=== PATIENT | female | born 1950 | race Caucasian/White ===

== ENCOUNTER 2025-08-18 02:41 | Observation (INO) | payer MEDICARE, SELFPAY ==
--- OUTSIDE RECORDS SUMMARY | 2025-08-17 13:30 | XMS_ITS | Encounter Summary ---
Author Organization [place] [address] Care Team Providers Care Adult Basic Education Instructor Name Role Phone Yolande Melgar DO Unavailable [phone] Shane Clay MD Unavailable [phone] Mily Saunders DO Primary Care Provider [phone] Reason for Referral * Echo (Routine) - Authorized Specialty Diagnoses / Procedures Referred By Jason magallanes Referred To Contact Radiology Diagnoses History of embolic stroke Mitral valve vegetation Chronic diastolic congestive heart failure (HCC) Procedures EC ECHOCARDIOGRAM COMPLETE W DOPPLER AND COLOR FLOW MAPPING Joanie Maldonado APRN [address] [place] [address] Phone: tel: fax: Referral ID Status Reason Start Date Expiration Date V isits Requested Visits Authorized [id number] Authorized 08/17/2025 08/17/2027 1 1 Reason for Visit * Reason Comments Follow-up 6 monthKnee problems Not the same since she had the stroke in January. 2 days ago left side feels like gas bubble sitting there Encounter Details Date Type Department Care Team (Late Contact Info) Description 08/17/2025 1:30 PM EST Office Visit [facility] [place] [phone] Joanie Maldonado APRN [address] [place] [address] History of embolic stroke (Primary Dx); EDER on CPAP; Mitral valve vegetation; Chronic diastolic congestive heart failure (HCC) Social History Tobacco Use Types Packs/Day Years Used Date Smoking Tobacco: Never Passive Smoke Exposure: Past Smokeless Tobacco: Never Tobacco Cessation:Counseling Given: No Alcohol Use Standard Drinks/Week Comments No 0 (1 standard drink = 0.6 oz pur e alcohol) [facility] Utilities Answer Date Recorded In the past 12 months has e electric, gas, oil, or water company threatened to shut off services in your home? No 02/13/2025 Overall Financial Resource Strain (CARDIA) Answe r Date Recorded How hard is it for you to pa y for the very basics like food, housing, medical care, and heating? Not hard at all 02/26/2025 PHQ-2 Answer Date Recorded PHQ-2 Total Score 0 05/09/2025 [facility] - Occupational Stress Questionnaire Answer Date Recorded Do you feel stress - tense, restless, nervous, or anxious, or unable to sleep at night because your mind is troubled all the time - these days? Not at all 02/26/2025 Exercise Vital Sign Answer Date Recorde d On average, how many days pe r week do you engage in moderate to strenuous exercise (like a brisk walk)? 0 days 02/26/2025 On average, how many minutes do you engage in exercise at this level? 0 min 02/26/2025 Hunger Vital Sign Answer Date Recorded Within the past 12 months, y ou worried that your food would run out before you got the money to buy more. Never true 02/27/20 25 Within the past 12 months, t he food you bought just didn't last and you didn't have money to get more. Never true 02/26/2025 PRAPARE - Transportation Answer Date Re corded In the past 12 months, has l ack of transportation kept you from medical appointments or from getting medications? No 10/2024 In the past 12 months, has l ack of transportation kept you from meetings, work, or from getting things needed for daily living? No 02/26/2025 [facility] IP Transportation Answer D ate Recorded In the past 12 months, has l ack of reliable transportation kept you from medical appointments, meetings, work or from getting things needed for daily living? 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 Answer Date of Assessment Author No 11/19/2021 9:42 AM Coretta Price RMA * Is the person blind or does he/she have serious difficulty seeing even when wearing glasses? Answer Date of Assessment Author No 11/19/2021 9:42 AM Coretta Price RMA * Does this person have serious difficulty walking or climbing stairs? Answer Date of Assessment Author No 11/19/2021 9:42 AM Coretta Price RMA * Does this person have difficulty dressing or bathing? Answer Date of Assessment Author No 11/19/2021 9:42 AM Coretta Price RMA * Because of a physical, mental or emotional condition, does this person have difficulty doing errands alone such as visiting a doctor's office or shopping? Answer Date of Assessment Author No 11/19/2021 9:42 AM Coretta Price RMA documented as of this encounter Mental Status * Because of a physical, mental or emotional condition, does this person have serious difficulty concentrating, remembering or making decisions? Answer Entry Date Author No 11/19/2021 9:42 AM Coretta Price RMA documented in this encounter Progress Notes * Joanie Maldonado, HOUSE MANAGER - 08/17/2025 1:30 PM EST Cardiology Follow Up Visit Name: Belinda Weiss : 1950 Referring Physician Mily Saunders DO Reason for Follow-up Hypertension, ROSE HPI 75 y.o. female is seen for follow up regarding hypertension. She was hospitalized 02/13-02/23 after syncopal episode. She was found to have acute punctate multifocal strokes with concern on Echo for endocarditis. She was evaluated by CTS with infectious workup negative they felt findings more related to calcium that has thrombosed and she was started on AC. Since discharge she has felt more depressed but feels she is improving each day. She was evaluated by sleep medicine and is now wearing cpap.Denies shortness of breath. Admits she is not overly active but no chest pain on exertion to report. Denies orthopnea, edema. Blood pressure is controlled. No bleeding complications. Denies palpitations, racing, near-syncope. ROS Denies: Change in vision, headache, fever, chills, nausea, vomiting, anorexia, diarrhea, change in bowel or bladder habits, weight loss or gain. No palpitations, lightheadedness, dizziness, syncope, or near syncope. No extreme fatigue, daytime solomence or change in energy level. No significant depression or anhedonia. Current Outpatient Medications Medication Sig Dispense Refill amLODIPine (NORVASC) 5 mg Oral Tablet Take 1 Tablet by mouth daily. 90 Tablet 1 apixaban (ELIQUIS) 5 mg Oral Tablet Take 1 Tablet by mouth 2 times daily. 60 Tablet 0 atorvastatin (LIPITOR) 40 mg Oral Tablet Take 1 Tablet by mouth daily for 360 days. 90 Tablet 3 bisoprolol (ZEBETA) 5 mg Oral Tablet Take 0.5 Tablets by mouth daily. 50 Tablet 2 Blood Sugar Diagnostic Misc Strip 1 Strip by Misc.(Non-Drug; Combo Route) route 4 times daily for 90 days. Morning fasting value. Then 1 hour after meals. 360 Strip 0 Blood-Glucose Meter Mis Misc 1 Each by Misc.(Non-Drug; Combo Route) route 4 times daily. Morning fasting value. Then 1 hour after meals. 1 Each 0 ergocalciferol (DRISDOL) 1,250 mcg (50,000 unit) Oral Capsule Take 50,000 Units by mouth daily. fenofibrate (TRICOR) 145 mg Oral Tablet TAKE ONE TABLET BY MOUTH EVERY DAY 90 Tablet 0 glipiZIDE (GLUCOTROL) 10 mg Oral Tablet Take 1 Tablet by mouth 2 times daily. with meals Lancets [facility] Misc 1 Each by Misc.(Non-Drug; Combo Route) route 4 times daily for 90 days. Morning fasting value. Then 1 hour after meals. 360 Each 0 metFORMIN (GLUCOPHAGE) 1,000 mg Oral Tablet Take 1 Tablet by mouth 2 times daily. No current facility-administered medications for this visit. Allergies Allergen Reactions Adrenalone Palpitations Vtzqmir-Zys-Ghf Reductase Inhibitors Myalgia Objective Vitals: 08/17/25 1025 BP: 110/80 Pulse: 70 SpO2: 98% Exam: GENERAL APPEARANCE: In no acute distress. Alert and Oriented x 3 HEENT: Normocephalic, Atraumatic, Sclera anicteric, Pupils equal, round, and reactive. NECK: No JVD, No Bruit. Carotid upstrokes are full. RESPIRATORY: Normal breath sounds bilaterally. No rales or wheezing HEART: Maged. Normal S1, S2- No S3, S4.No Murmur VASCULAR: Normal pulses, equal bilaterally. ABDOMEN: Soft, nontender, no organomegaly, no distension. EXTREMITIES: No edema Good capillary refill. Labs Lab Results Component Value Date CHOLESTEROL 137 02/14/2025 CHOLESTEROL 150 05/31/2024 CHOLESTEROL 186 05/28/2023 HDL 44 02/14/2025 HDL 59 05/31/2024 HDL 65 05/28/2023 LDLCALC 72 02/14/2025 LDLCALC 74 05/31/2024 LDLCALC 101 (H) 05/28/2023 TRIG 119 02/14/2025 TRIG 91 05/31/2024 TRIG 112 05/28/2023 Lab Results Component Value Date INR 0.98 12/25/2022 Lab Results Component Value Date WBC 8.5 02/20/2025 WBC 9.8 02/16/2025 WBC 10.8 (H) 02/15/2025 HGB 11.9 02/20/2025 HGB 12.0 02/16/2025 HGB 12.2 02/15/2025 HCT 36.8 02/20/2025 HCT 37.4 02/16/2025 HCT 38.0 02/15/2025 MCV 88.0 02/20/2025 MCV 87.0 02/16/2025 MCV 88.6 02/15/2025 PLT 247 02/20/2025 PLT 221 02/16/2025 PLT 215 02/15/2025 Lab Results Component Value Date HGBA1C 9.1 (H) 05/24/2025 HGBA1C 8.1 (H) 02/15/2025 HGBA1C 8.0 (H) 05/31/2024 Lab Results Component Value Date NA 141 03/26/2025 NA 136 02/23/2025 NA 137 02/22/2025 K 4.2 03/26/2025 K 3.8 02/23/2025 K 4.1 02/22/2025 BUN 25 (H) 03/26/2025 BUN 14 02/23/2025 BUN 16 02/22/2025 CALCIUM 10.1 03/26/2025 CALCIUM 9.6 02/23/2025 CALCIUM 9.5 02/22/2025 CL 105 03/26/2025 CL 102 02/23/2025 CL 102 02/22/2025 CO2 25 03/26/2025 CO2 25 02/23/2025 CO2 25 02/22/2025 CREATININE 0.75 03/26/2025 CREATININE 0.56 02/23/2025 CREATININE 0.66 02/22/2025 GLU 118 (H) 03/26/2025 GLU 191 (H) 02/23/2025 GLU 188 (H) 02/22/2025 Lab Results Component Value Date ALT 10 05/28/2023 ALT 11 04/29/2022 ALT 8 03/07/2022 AST 13 05/28/2023 AST 12 04/29/2022 AST 12 03/07/2022 ALKPHOS 53 05/28/2023 ALKPHOS 44 04/29/2022 ALKPHOS 44 03/07/2022 Lab Results Component Value Date TSHREFLEX 2.640 05/31/2024 Cardiac Testing: Echo 08/16: EF 70%. Mod MAC. Mild MR. Echo 02/18: EF 55-60%. Mild MR. Mobile echogenicity on ventricular side of the posterior mitral valve leaflet measuring 1.3 cm. CHRISTOFER 02/18: EF 60-65%. A mobile echogenic structure 1.48 cm x 1.4cm attached to the chordae. Mild MR. Assessment: Acute Multifocal Embolic CVA 02/18 Mitral Valve Mass - evaluated by CTS that felt calcium that has thrombosed vs vegetation - infectious w/u negative - now on AC Hypertension - controlled Endometrial Cancer - s/p Total Hysterectomy and bilateral salpingo-oophorectomy 03/18 Type 2 Diabetes - A1c 9.1 Obesity Hyperlipidemia - on fenofibrate, statin H/o Statin Myalgia - tolerating atorvastatin Sleep Apnea - on cpap S/p L CEA 2019 Plan Repeat Echo Encouraged to complete 30-day EM Continue amlodipine, bisoprolol, eliquis Labs reviewed RTC 6 months Joanie Maldonado APRN documented in this encounter Miscellaneous Notes * Patient Instructions - Ganesh Cook MA - 08/17/2025 1:30 PM EST You may receive a survey via phone, mail or e-mail, regarding your visit today. Your feedback is important to us. We ask that you please take a few minutes to fill out the survey. You were assisted by STEPHANI Nair and Kishore Cook Pinky Thank You for choosing [facility]. We sincerely thank you for the opportunity to be a part of your care. documented in this encounter Plan of Treatment Upcoming Encounters Date Type Department Care Team (Late st Contact Info) Description 02/06/2026 11:30 AM EDT Office Visit [facility] [address] [phone] Lelo Diaz APRN [address] [address] 02/14/2026 12:15 PM EDT Appointment [facility] [address] [place] [address] Joanie Maldonado APRN [address] [place] [address] 03/25/2026 11:00 AM EDT Office Visit [facility] [place] [address] [place] [address] Derik Aragon MD [address] [place] [address] Scheduled Orders Name Type Priority Associated Diagnoses Order Schedule EC ECHOCARDIOGRAM COMPLETE W DOPPLER AND COLOR FLOW MAPPING Imaging Cardiology Routine History of embolic stroke Mitral valve vegetation Chronic diastolic congestive heart failure (HCC) 1 Occurrences starting 08/17/2025 until 08/17/2027 documented as of this encounter Goals Goal Patient Goal Type Associated Problems Recent Progress Patient-Stated? 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 ergocalciferol (DRISDOL) 1,250 mcg (50,000 unit) Oral Capsule Take 50,000 Units by mouth daily. added in this encounter Additional Health Concerns Assessment Noted Time A fall risk assessment has been complete d for the patient 05/31/2024 8:53 AM EDT documented as of this encounter Care Teams Adult Basic Education Instructor Relationship Specialty Start Date End Date Mily Saunders DO [address] [place] [address] PCP - General Family Medicine 12/16/23 Yolande Melgar DO Referring Physician Obstetrics & Gynecology 01/20/22 Shane Clay MD [address] [place] [address] [place] [address] Consulting Physician Obstetrics & Gynecology-Gynecologic Oncology 01/20/22 documented as of this encounter
[2025-08-18] VITALS (19 sets, daily range): BP systolic 121–165; BP diastolic 66–97; PULSE 60–98; RESP 10–25; TEMP 36.4–37.2; O2SAT 94–98; BMI 43.4
--- NOTE | 2025-08-18 02:49 | CT_ITS ---
PROCEDURE INFORMATION: Exam: CT Abdomen And Pelvis With Contrast Exam date and time: 08/18/2025 3:47 AM Age: 75 years old Clinical indication: Other: Epigastric burning/pain TECHNIQUE: Imaging protocol: Computed tomography of the abdomen and pelvis with contrast. Radiation optimization: All CT scans at this facility use at least one of these dose optimization techniques: automated exposure control; mA and/or kV adjustment per patient size (includes targeted exams where dose is matched to clinical indication); or iterative reconstruction. Contrast material: ISOVUE; Contrast volume: 75 ml; Contrast route: IV; COMPARISON: No relevant prior studies available. FINDINGS: Heart: Extensive mitral annular calcifications. Coronary arteries: Moderate coronary calcium. Liver: The liver is low in density. Gallbladder and biliary ducts: Cholecystectomy. Pancreas: Normal. No ductal dilation. Spleen: Normal. No splenomegaly. Adrenal glands: Normal. No mass. Kidneys and ureters: Normal. No hydronephrosis. Stomach and bowel: Unremarkable. No obstruction. No mucosal thickening. Appendix: No evidence of appendicitis. Intraperitoneal space: Unremarkable. No free air. No significant fluid collection. Vasculature: Unremarkable. No abdominal aortic aneurysm. Lymph nodes: A single 12 mm short axis left retroperitoneal lymph node is noted.. No enlarged lymph nodes. Urinary bladder: Unremarkable as visualized. Reproductive: Hysterectomy. Bones/joints: Unremarkable. No acute fracture. Soft tissues: Unremarkable. IMPRESSION: No acute process to explain the patient's symptoms.
--- NOTE | 2025-08-18 03:09 | ECG_ITS ---
APPROVED REPORT Exam: Resting ECG HR:63 bpm ECG Measurements Heart Rate [address] 211 P 55 QRSd 89 QRS 30 QT 431 T -6 QTc 437 Conclusion SINUS RHYTHM WITH FIRST DEGREE AV BLOCK ABNORMAL ECG Inverted T waves in lead III and aVF but no reciprocal changes, no STEMI Electronically signed by : SAMINA PALMER, 08/18/2025 07:23:48
--- NOTE | 2025-08-18 03:12 | ED_ITS ---
Discharge Plan Disposition Patient Disposition: Admitted Condition: Fair Clinical Impressions Clinical Impression: Non-ST elevation LA (NSTEMI), Enlarged lymph node Discharge ED Provider: Marciano Garcia Adult HPI General Chief complaint: Abdominal Pain Stated complaint: altered Time Seen by Provider: 08/18/25 02:49 Mode of Arrival: EMS Source of Information: Patient and EMS Description of Symptoms (Recalled from ER Triage Doc. by RN): PT brought to the ED for evaluation of burning in her chest- substernal. Denies being nauseous. PT stated she did not eat supper last night but did drink carbonated drinks last night. PT is A&Ox4 and answered all questions appropriately. PT is upset that her family called EMS for transfer. PT takes Eliquis History of Present Illness HPI narrative: 75-year-old female presents to the ER via EMS for substernal burning and sharp pain in the chest. She reports it has been going on for the last 5 hours. She denies being nauseous. She denies any chest pressure or difficulty breathing. She reports she did not eat supper last night but did drink carbonated beverages which is not normal for her. She is fully alert and oriented. Patient reports she has had episodes like this in the past but they usually only last an hour. Patient has a history of strokes and takes Eliquis. Patient reports she does see cardiology and has an echo scheduled again in 6 months. She states her appointment with cardiology yesterday showed everything was stable. She denies any diarrhea or constipation, denies dysuria or hematuria. No fevers or chills, no headache or dizziness, no numbness, tingling, or weakness. No cough or congestion. No other complaints or concerns. Related Data Allergies Allergy/AdvReac Type Severity Reaction Status Date / Time No Known Allergies Allergy Verified 08/18/25 02:54 [facility] Disclaimer: The information contained in this section may have been updated after the patient was seen, as this information can be updated by other users. Social History Smoking Status: Never smoker alcohol intake: never current occupational status: other Travel in the last 8 weeks?: None ROS Obtained: Yes Systems reviewed as appropriate & no additional complaints except as documented Per HPI Physical Exam General General appearance: alert, in no apparent distress and obese Head Head exam: atraumatic and normocephalic Eye Eye exam: Present PERRL and EOMI ENT ENT exam: Present mucous membranes moist Neck Neck exam: Present normal inspection and full ROM Chest Chest inspection: Present symmetric chest wall rise Respiratory Respiratory exam: Present normal lung sounds bilaterally; Absent respiratory distress, wheezes or stridor Cardiovascular Cardiovascular exam: Present regular rate and normal rhythm Abdominal Exam Abdominal exam: Present soft and tenderness (Mild epigastric tenderness); Absent distention, guarding or rebound Extremities Exam Extremities exam: Present full ROM Neurological Exam Neurological exam: Present alert and oriented X3; Absent motor sensory deficit Psychiatric Psychiatric exam: Present normal affect and normal mood Skin Skin exam: Present warm and dry Medical Decision Making Medical Records Screening: Per USPSTF and CDC recommendations, given the prevalence of disease in our region, it is our hospital?s policy to screen for HIV and viral Hepatitis for all patients aged 18 and over and those with ongoing risk factors. Angelito Inquiry Pt receiving controlled substance: No Vital Signs: 08/18/25 02:45 08/18/25 02:56 08/18/25 04:40 Temperature 98.9 F 98.6 F Temperature Source Oral Pulse Rate 64 98 H Pulse Rate [Right] 64 Respiratory Rate 13 13 23 Blood Pressure 141/85 H 160/88 H Blood Pressure [Right Arm] 141/85 H Blood Pressure Mean [Right Arm] 103 02 Sat by Pulse Oximetry 97 97 94 L Oxygen Delivery Method Room Air Room Air Room Air 08/18/25 06:15 08/18/25 06:47 Temperature 98.4 F Temperature Source Pulse Rate 73 77 Pulse Rate [Right] Respiratory Rate 14 16 Blood Pressure 121/66 130/76 Blood Pressure [Right Arm] Blood Pressure Mean [Right Arm] 02 Sat by Pulse Oximetry 96 Oxygen Delivery Method Room Air Room Air Lab Data Lab Results 08/18/25 03:05: WBC 11.5 H, RBC 4.41, Hgb 12.2, Hct 38.8, MCV 88.0, MCH 27.7, M CHC 31.4 L, RDW 13.0, Plt Count 285, MPV 11.4 H, Neut % (Auto) 75.5, Lymph % (Auto) 15.6, [place] % (Auto) 6.2, Eos % (Auto) 1.7, Baso % (Auto) 0.4, Neut # (Auto) 8.6 H, Lymph # (Auto) 1.8, [place] # (Auto) 0.7, Eos # (Auto) 0.2, Baso # (Auto) 0.1, PT 11.6, INR 1.05, Sodium 136, Potassium 4.1, Chloride 103, Carbon Dioxide 26, Anion Gap 11.1, BUN 20 H, Creatinine 0.80, Estimated Creat Clear 44, Estimated GFR 70, Est GFR ( Amer) 84, Glucose 156 H, Lactate 1.5, Calcium 9.7, Total Bilirubin 0.4, AST 17, ALT 15, Alkaline Phosphatase 63, Troponin I < 0.01, Total Protein 7.2, Albumin 4.2, Globulin 3.0, Albumin/Globulin Ratio 1.4, Lipase 113 08/18/25 04:45: Urine Color Yellow, Urine Appearance Clear, Urine pH 6.5, Ur Specific [place] <= 1.005, Urine Protein Negative, Urine Glucose (UA) Negative, Urine Ketones Negative, Urine Blood Negative, Urine Nitrate Negative, Urine Bilirubin Negative, Urine Urobilinogen 0.2, Ur Leukocyte Esterase Negative, Urine RBC None, Urine WBC None, Ur Squamous Epith Cells 3-5, Urine Bacteria Trace 08/18/25 05:04: Troponin I 0.05 H 08/18/25 03:05 08/18/25 03:05 Orders (Tests/Meds): ED MEDICATIONS Generic Name Dose Route Start Last Admin Trade Name Freq PRN Reason Stop Dose Admin Acetaminophen 650 mg 08/18/25 06:37 Acetaminophen 325mg Tab PO 09/17/25 06:36 Q4HP PRN Fever or Mild Pain (1-3) Hydrocodone Bitart/Acetaminophen 1 tab 08/18/25 06:37 Hydrocodone/Apap 5/325 Mg Tablet PO 09/17/25 06:36 Q4HP PRN Mild to Moderate Pain (1-6) Enoxaparin Sodium 120 mg 08/18/25 06:30 08/18/25 06:38 Enoxaparin 120mg/0.8ml Syringe SUBCUT 09/17/25 06:29 120 mg Q12H BAKARI Administration Insulin Human Lispro 0 unit 08/18/25 11:00 Humalog 100 Units/Ml 10ml Vial (Ssi) SUBCUT 09/17/25 10:59 ACHS BAKARI Protocol Morphine Sulfate 2 mg 08/18/25 06:37 Morphine 2mg/Ml Syringe IV 09/17/25 06:36 Q2HP PRN Severe Pain (7-10) Nitroglycerin 0.4 mg 08/18/25 06:04 08/18/25 06:14 Nitroglycerin 0.4mg Sl Tablet SL 09/17/25 06:03 0.4 mg Q5MINP PRN Administration Chest Pain Ondansetron HCl 4 mg 08/18/25 06:37 Ondansetron 4mg/2ml Vial IV 09/17/25 06:36 Q8HP PRN Nausea Sodium Chloride 10 ml 08/18/25 03:49 08/18/25 03:50 Sodium Chloride 0.9% 10ml Syr (Rad Only) IV 09/17/25 03:48 10 ml NEEDED PRN Administration Maintain IV Site Discontinued Medications Generic Name Dose Route Start Last Admin Trade Name Freq PRN Reason Stop Dose Admin Aspirin 324 mg 08/18/25 02:59 08/18/25 03:27 Aspirin 81mg Chewable Tablet PO 08/18/25 03:00 324 mg ONCE ONE Administration Belladonna Alkaloids 60 ml 08/18/25 04:41 08/18/25 04:44 Belladonna Alkaloids 60 Ml Ml PO 08/18/25 04:42 60 ml ONCE ONE Administration Lactated Ringer's 1,000 mls @ 999 mls/hr 08/18/25 02:49 08/18/25 04:58 Lactated Ringer's 1000 Ml Bag IV 08/18/25 03:49 Infused .Q1H1M ONE Infusion Lactated Ringer's 500 mls @ 999 mls/hr 08/18/25 04:58 08/18/25 05:43 Lactated Ringer's 500ml IV 08/18/25 05:28 Infused .Q31M ONE Infusion Iopamidol 75 ml 08/18/25 03:49 08/18/25 03:50 Iopamidol-370 (76%);100ml Bottle IV 08/18/25 03:50 75 ml ONCE ONE Administration Sucralfate 1 gm 08/18/25 02:50 08/18/25 03:30 Sucralfate 1gm/10ml Susp Udc PO 08/18/25 02:51 1 gm ONCE ONE Administration ORDERS Category Date Time Status CT abdomen pelvis w con Stat Cat Scan 08/18/25 02:49 Completed Complete Blood Count Auto Diff Stat Lab 08/18/25 03:05 Completed Comprehensive Metabolic Panel Stat Lab 08/18/25 03:05 Completed Lactic Acid Stat Lab 08/18/25 03:05 Completed Lipase Stat Lab 08/18/25 03:05 Completed Prothrombin Time INR Stat Lab 08/18/25 03:05 Completed Troponin I Q3H Lab 08/18/25 05:04 Completed Troponin I Q3H Lab 08/18/25 09:00 Ordered Troponin I Stat Lab 08/18/25 03:05 Completed Urinalysis and Microscopic Stat Lab 08/18/25 04:45 Completed Medical Decision Narrative: In summary, this 75-year-old female with comorbidities described in the HPI including stroke on Eliquis presents to the emergency department today with burning epigastric discomfort. On initial evaluation patient is hemodynamically stable though hypertensive, GCS 15, mild tenderness to palpation in the epigastric region with no rebound or guarding, no peritonitic findings, no peripheral edema, pulmonary exam benign. Differential diagnosis includes but is not limited to ACS, esophageal spasm, patient reports a history of heartburn so I did consider this/reflux as well as pneumothorax, pancreatitis, viral syndrome, gastritis or esophagitis, among others. Based on these concerns, I ordered hematologic and serum labs, cardiac workup including ECG, chest x-ray, cardiac enzymes. ECG personally interpreted demonstrates sinus rhythm, first degree A-V block, rate 63, normal axis, normal QTc, no STEMI though there are T wave inversions in lead III and aVF without reciprocal or contiguous changes Patient received sucralfate and aspirin initially for treatment. She is also receiving IV fluids Labs personally reviewed demonstrate leukocytosis is mild at 11.5, nonactionable, no anemia, normal platelets, PT/INR normal, CMP with mild prerenal azotemia, patient is receiving IV fluids. Initial troponin undetectably low less than 0.01, UA negative for findings of infection. XR personally interpreted demonstrates no acute intrathoracic abnormality, see radiology read for final interpretation. CT imaging personally interpreted demonstrate no stranding along the pancreas, no acute surgical pathology, see radiology read for final interpretation. Radiology read comments on a single slightly enlarged lymph node for which patient was informed for outpatient follow-up. Patient was placed into ED observation at 0400 for serial troponins to rule out evolving LA and preclude unnecessary admission. She remained on the rn cardiac cath and was frequently reassessed. She continued having some burning so GI cocktail was provided. She reports this significantly improved her pain but it is not yet absent. Repeat troponin resulted at 0.05, this is an acute change. Repeat ECG was obtained, personally performed and interpreted demonstrating sinus rhythm, rate 73, normal axis, normal OH and QTc, no STEMI. Patient does have T wave inversions in lead III and aVF which are persistent from prior but unchanged. No dynamic changes. I had interactive discussion with Dr. Vincent regarding this patient's elevation in troponin and persistent symptoms with her ECG. We reviewed the ECG. He recommended nitro administration and if this did not resolve her symptoms to start her on Lovenox. He recommends admission regardless for continued cardiac workup. I recommended this to the patient and she is agreeable. She did not have resolution of symptoms after nitro so Lovenox is being administered. I discussed this case with the hospitalist who graciously except the patient for admission. She was admitted in stable condition. Critical Care Critical Care Time Critical Care Time: No
[2025-08-18 03:13] LABS: Hematocrit 38.8 % (37.0-47.0); Hemoglobin 12.2 g/dL (12.2-16.2); Immature Granulocytes % 0.6 %; Mean Corpuscular HGB Conc 31.4 g/dL (31.8-35.4); Mean Corpuscular Hemoglobin 27.7 pg (27.0-31.2); Mean Corpuscular Volume 88.0 fl (81-99); Nucleated Red Blood Cells % 0 %; Platelet Count 285 K/mm3 (142-424); Red Blood Count 4.41 M/mm3 (4.20-5.40); Red Cell Distribution Width-SD 41.7 fL; White Blood Count 11.5 K/mm3 (4.8-10.8)
--- OUTSIDE RECORDS SUMMARY | 2025-08-18 03:22 | XMS_ITS | Encounter Summary ---
Author Organization [place] [address] Care Team Providers Care Demo Specialist Name Role Phone Jennifer Delgadillo MD Primary Care Provi elroy Unavailable Yolande Melgar DO Unavailable [phone] Shane Clay MD Unavailable [phone] Mily Saunders DO Primary Care Provider [phone],LD Unavailable Unavailab le Encounter Details Date Type Department Care Team (Latest Contact Info) Description 03/11/2022 External Contact [facility] Pulmonology [facility] [address] [phone] Artur West MD [address] [phone] ROSE (dyspnea on exertion) (Primary Dx); EDER on CPAP; Morbid obesity (HCC); 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 Not hard at all 03/03/2022 PHQ-2 Answer Date Recorded PHQ-2 Total Score 0 11/19/2021 Hunger Vital Sign Answer Date Recorded Within the past 12 months, y ou worried that your food would run out before you got the money to buy more. Never true 03/03/20 22 Within the past 12 months, t he food you bought just didn't last and you didn't have money to get more. Never true 03/03/2022 PRAPARE - Transportation Answer Date Re corded In the past 12 months, has l ack of transportation kept you from medical appointments or from getting medications? No 03/2022 In the past 12 months, has l ack of transportation kept you from meetings, work, or from getting things needed for daily living? 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 No / Unsure 03/10/2022 1:03 PM EDT documented as of this encounter Functional Status * Is the [...] Coretta Price RMA documented in this encounter Plan of Treatment Upcoming Encounters Date Type Department Care Team (Late st Contact Info) Description 02/06/2026 11:30 AM EDT Office Visit SEP Sleep Medicine [facility] [address] [phone] Lelo Diaz, SOLUTION SALES SENIOR EXECUTIVE [address] [address] 02/14/2026 12:15 PM EDT Appointment [facility] [address] [place] [address] Joanie Maldonado, SOLUTION SALES SENIOR EXECUTIVE [address] [place] [address] 03/25/2026 11:00 AM EDT Office Visit [facility] H[facility]V [address] [address] Derik Aragon MD [address] [place] [address] documented as of this encounter Goals Goal Patient Goal Type Associated Problems Recent Progress Patient-Stated? Author Blood Pressure < 140/90 Blood Pressure 110/80(2024 10:25 AM EST) Coretta Voss RMA BMI (Calculated) < 30 General 43.5(08/17/20 10:25 AM EST) No Coretta Rodarte RMA Maintain a healthy diet, exercise regularly and maintain an ideal body weight General No Coretta Rodarte RMA HEMOGLOBIN A1C < 7.0 Result Component 9.1( 12:06 PM EDT) No Coretta Rodarte ROSEMARY Casarez documented as of this encounter Visit Diagnoses Diagnosis ROSE (dyspnea on exertion)- Primary Other dyspnea and respiratory abnormality EDER on CPAP Obstructive sleep apnea (adult) (pediatric) Morbid obesity (HCC) Morbid obesity 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 documented in this encounter Additional Health Concerns Infection Onset Date Last Indicated Resolved Time R/O COVID-19 10/08/2023 10/08/2023 10/08/2023 12:3 2 PM EST Assessment Noted Time A fall risk assessment has been complete d for the patient 11/12/2021 3:03 PM EST documented as of this encounter Care Teams Demo Specialist Relationship Specialty Start Date End Date Jennifer Delgadillo MD PCP - General Family Medicine 07/01/18 12/15/23 Mily Saunders DO [address] [place] [address] PCP - General Family Medicine 12/16/23 Yolande Melgar DO Referring Physician Obstetrics & Gynecology 01/20/22 Shane Clay MD [address] [place] [address] [place] [address] Consulting Physician Obstetrics & Gynecology-Gynecologic Oncology 01/20/[address],LD Dietitian 03/02/25 03/07/25 documented as of this encounter
--- OUTSIDE RECORDS SUMMARY | 2025-08-18 03:24 | XMS_ITS | Encounter Summary ---
Author Organization [facility] [place] [address] Care Team Providers Care Door Puller Name Role Phone Yolande Melgar DO Unavailable [phone] Shane Clay MD Unavailable [phone] Mily Saunders DO Primary Care Provider [phone] Reason for Visit * Reason Onset Date Comments Refill 07/19/2025 Med refill Encounter Details Date Type Department Care Team (Late st Contact Info) Description 07/19/2025 Telephone [facility] [address] [place] [phone] Mily Saunders DO [address] [facility] [place] [id number] Refill (Med refill ) Social History Tobacco Use Types Packs/Day Years Used Date Smoking Tobacco: Never Passive Smoke Exposure: Past Smokeless Tobacco: Never Alcohol Use Standard Drinks/Week Comments No 0 (1 standard drink = 0.6 oz pur e alcohol) [facility] Utilities Answer Date Recorded In the past 12 months has e electric, gas, oil, or water company threatened to shut off services in your home? No 02/13/2025 Overall Financial Resource Strain (CARDIA) Dulce r Date Recorded How hard is it for you to pa y for the very basics like food, housing, medical care, and heating? Not hard at all 02/26/2025 PHQ-2 Answer Date Recorded PHQ-2 Total Score 0 05/09/2025 [facility] [place] [facility] Occup[facility] ional [facility] - Occupational Stress [...] things needed for daily living? No 02/26/2025 [facility] IP Transportation Answer D ate Recorded [...] on file documented as of this encounter Functional Status * Is the person deaf or does he/she have serious difficulty hearing? Answer Date of Assessment Author No 11/19/2021 9:42 AM Coretta Price RMA * Is the person blind or does he/she have serious difficulty seeing even when wearing glasses? Answer Date of Assessment Author No 11/19/2021 9:42 AM [facility] Cherisedonemir linares Corettaadis Casarez, CARIDADA * Does this person have serious difficulty walking or climbing stairs? Answer Date of Assessment Author No 11/19/2021 9:42 AM [facility] Hicks vijay Corettaadis Casarez, CARIDADA * Does this person have difficulty dressing or bathing? Answer Date of Assessment Author No 11/19/2021 9:42 AM [facility] Benavidezemir linares Corettaadis Casarez, CARIDADA * Because of a physical, mental or emotional condition, does this person have difficulty doing errands alone such as visiting a doctor's office or shopping? Answer Date of Assessment Author No 11/19/2021 9:42 AM [facility] linares Coretta Leida CARIDADA documented as of this encounter Mental Status * Because of a physical, mental or emotional condition, does this person have serious difficulty concentrating, remembering or making decisions? Answer Entry Date Author No 11/19/2021 9:42 AM [facility] Cherisedonemir linares Corettaadis Casarez ROSEMARY documented in this encounter Ordered Prescriptions Prescription Sig Dispense Quantity Refills Last Filled Start Date End Date apixaban (ELIQUIS) 5 mg Oral TabletIndications:C arotid artery disease without cerebral infarction Take 1 Tablet by mouth 2 times daily. 60 Tablet 07/19/2025 documented in this encounter Miscellaneous Notes * Telephone Encounter - Anibal Fish MA - 07/19/2025 12:49 PM EDT Meds sent lmtcb * Telephone Encounter - Kalpana Foreman - 07/19/2025 12:33 PM EDT Select the most appropriate reason for this telephone message: Medication Refill Who is requesting the refill: Patient Return Method of Communication: Phone Call Medication(s)Name/Dosage/Frequency: ELIQUIS 5 mg Oral Tablet 60 Tablet 0 06/19/2025 -- Sig - Route: TAKE 1 TABLET BY MOUTH TWICE A DAY - Oral Prescribing provider: Dr. Saunders Did patient contact the pharmacy first: No pt wasn't sure if she should call us or the pharmacy (For any future refill, we recommend you contact your pharmacy first How many days left on hand: pt thinks she has about 10 days of this left Future appt date w/ prescribing provider: n/a Pharmacy & Location: [facility]/pharmacy #[id number] [place] [address] [address] [place] [address] Informed patient refill requests can take up to 72 business hours for response Yes Additional Information: med pended - please call pt to advise when this is taken care of documented in this encounter Plan of Treatment Upcoming Encounters Date Type Department Care Team (Late st Contact Info) Description 02/06/2026 11:30 AM EDT Office Visit [facility] Sleep Medicine [facility] [address] [phone] Lelo Diaz, NIGHT PATROL INSPECTOR [address] [address] 02/14/2026 12:15 PM EDT Appointment [facility] [address] [facility] [address] Joanie Maldonado, NIGHT PATROL INSPECTOR [address] [place] [address] 03/25/2026 11:00 AM EDT Office Visit [facility] H[facility] [address] [place] [address] Derik Aragon MD [address] [place] [address] documented as of this encounter Goals Goal Patient Goal Type Associated Problems Recent Progress Patient-Stated? Author Blood Pressure < 140/90 Blood Pressure 110/80(2024 10:25 AM EST) No Coretta Rodarte RMA BMI (Calculated) < 30 General 43.5(08/17/20 10:25 AM EST) No Coretta Rodarte RMA Maintain a healthy diet, exercise regularly and maintain an ideal body weight General No Coretta Rodarte RMA HEMOGLOBIN A1C < 7.0 Result Component 9.1( 12:06 PM EDT) No Coretta Rodarte RMA documented as of this encounter Visit Diagnoses Diagnosis Carotid artery disease without cerebral infarction Other specified transient cerebral ischemias documented in this encounter Discontinued Medications Medication Sig Discontinue Reason Start Date End Da te ELIQUIS 5 mg Oral TabletIndications:Caroti d artery disease without cerebral infarction TAKE 1 TABLET BY MOUTH TWICE A DAY Reorder 06/19/2025 07/19/2025 documented as of this encounter Additional Health Concerns Assessment Noted Time A fall risk assessment has been complete d for the patient 05/31/2024 8:53 AM EDT documented as of this encounter Care Teams Door Puller Relationship Specialty Start Date End Date Mily Saunders [place] [address] PCP - General Family Medicine 12/16/23 Yolande Melgar DO Referring Physician Obstetrics & Gynecology 01/20/22 Shane Clay MD [address] [place] [address] [place] [phone] Consulting Physician Obstetrics & Gynecology-Gynecologic Oncology 01/20/22 documented as of this encounter
--- OUTSIDE RECORDS SUMMARY | 2025-08-18 03:25 | XMS_ITS | Encounter Summary ---
Author Organization [place] [address] Care Team Providers Care Lead Ios Developer Name Role Phone Yolande Melgar DO Unavailable [phone] Shane Clay MD Unavailable [phone] Mily Saunders DO Primary Care Provider + [phone] Reason for Visit * Reason Onset Date Comments Medication Management 05/22/2025 ELIQUIS 5 mg Oral Tablet Encounter Details Date Type Department Care Team (Late st Contact Info) Description 05/22/2025 Telephone SEP Claudia [address] [place] [address] Mily Saunders DO [address] [facility] [place] [phone] Medication Management (ELIQUIS 5 mg Oral Tablet /) Social History Tobacco Use Types Packs/Day Years Used Date Smoking Tobacco: Never Passive Smoke Exposure: Past Smokeless Tobacco: Never Alcohol Use Standard Drinks/Week Comments No 0 (1 standard drink = 0.6 oz pur e alcohol) [facility] Utilities Answer Date Recorded In [...] Date Recorded PHQ-2 Total Score 0 05/09/2025 [facility] - Occupational [...] things needed for daily living? No 02/26/2025 [facility] IP Transportation Answer D ate [...] Assessment Author No 11/19/2021 9:42 AM Coretta Price, RMA * Does this person have serious difficulty walking or climbing stairs? Answer Date of Assessment Author No 11/19/2021 9:42 AM Coretta Price, RMA * Does this person have difficulty dressing or bathing? Answer Date of Assessment Author No 11/19/2021 9:42 AM Coretta Price, RMA * Because of a physical, mental or emotional condition, does this person have difficulty doing errands alone such as visiting a doctor's office or shopping? Answer Date of Assessment Author No 11/19/2021 9:42 AM Coretta Price, RMA documented as of this encounter Mental Status * Because of a physical, mental or emotional condition, does this person have serious difficulty concentrating, remembering or making decisions? Answer Entry Date Author No 11/19/2021 9:42 AM Coretta Price Leida, RMA documented in this encounter Miscellaneous Notes * Telephone Encounter - Barbara Alas RMA - 05/22/2025 1:44 PM EDT Do you know if we have samples? * Telephone Encounter - Remy Romo CCMA - 05/22/2025 1:23 PM EDT Select the most appropriate reason for this telephone message: Other Who is calling (name & relationship to patient if not the patient): Patient What is needed OR why are they calling: She is calling back about the same thing When is this needed by: today Where does this information need to go: Dr. Saunders Return Method of Communication: Phone Call Additional information:N/A * Telephone Encounter - Nancy Kingston MA - 05/22/2025 10:18 AM EDT Select the most appropriate reason for this telephone message: Medication Management/Problem Who is calling? Patient What medication(s) do you have concerns about: Disp Refills Start End ELIQUIS 5 mg Oral Tablet 60 Tablet 0 05/22/2025 -- Sig - Route: TAKE 1 TABLET BY MOUTH TWICE A DAY - Oral Sent to pharmacy as: Eliquis 5 mg tablet (apixaban) Cosign for Ordering: Required by Mily Saunders, DO E-Prescribing Status: Receipt confirmed by pharmacy (05/22/2025 8:30 AM EDT) Prescribing provider: Mily Saunders, DO What are your concerns/request: Pt is [facility] [place] [facility] and was advisedit could take 2 weeks for shipping. Pt states she only has 3 days of the following medication left,and is asking if she is able to get samples. Desired outcome: Other Samples Last appointment date: 05/09/25 Pharmacy: [id number] [place] [address] [address] [facility] [phone] [[id number]] Return Method of Communication: Phone Call Additional Information: Please advise if samples are available that pt can scrap picker as pt reports she was advised by [facility] it could take 2 weeks to receive meds, and she only has 3 days left of the following med. Pt states if no samples are available can she please have a 2 week supply sent to local pharmacy at [facility] in [place]. Please advise pt if samples are available as she is concerned about cost. Pt states she's having trouble with her phone ringing so if she does not answer please reach out to her son Saji (on [facility]) @ [phone]. Pt is very concerned about being out of the followingmedication, thank you. FOLLOW UP NEEDED:Thank you. documented in this encounter Plan of Treatment Upcoming Encounters Date Type Department Care Team (Late st Contact Info) Description 02/06/2026 11:30 AM EDT Office Visit SEP Sleep Medicine [facility] 6[address] [facility] Building [address] [place] [phone] Lelo Diaz, SHREDDER PICKER 651 [facility] Building [address] [place] [address] 02/14/2026 12:15 PM EDT Appointment [facility] [address] [place] [address] Joanie Maldonado, SHREDDER PICKER [address] [place] [address] 03/25/2026 11:00 AM EDT Office Visit SEP [facility] [address] [place] [address] Derik Aragon MD [address] [place] [address] documented as of this encounter Goals Goal Patient Goal Type Associated Problems Recent Progress Patient-Stated? Author Blood Pressure < 140/90 Blood Pressure 110/80(2024 10:25 AM EST) No Coretta Rodarte RMA BMI (Calculated) < 30 General 43.5(08/17/20 10:25 AM EST) No Coretta Rodatre RMA Maintain a healthy diet, exercise regularly and maintain an ideal body weight General No Coretta Rodarte RMA HEMOGLOBIN A1C < 7.0 Result Component 9.1( 12:06 PM EDT) No Coretta Rodarte RMA documented as of this encounter Visit Diagnoses Not on filedocumented in this encounter Additional Health Concerns Assessment Noted Time A fall risk assessment has been complete d for the patient 05/31/2024 8:53 AM EDT documented as of this encounter Care Teams Lead Ios Developer Relationship Specialty Start Date End Date Mily Saunders DO [address] [place] [phone] PCP - General Family Medicine 12/16/23 Yolande Melgar DO Referring Physician Obstetrics & Gynecology 01/20/22 Shane Clay MD 1 [place] [address] Consulting Physician Obstetrics & Gynecology-Gynecologic Oncology 01/20/22 documented as of this encounter
--- OUTSIDE RECORDS SUMMARY | 2025-08-18 03:25 | XMS_ITS | Encounter Summary ---
Author Organization [place] Address [address] [place] [address] Care Team Providers Care Domestic Technician Name Role Phone Yolande Melgar DO Unavailable [phone] Shane Clay MD Unavailable [phone] Mily Saunders DO Primary Care Provider [phone] Reason for Referral * DEXA (Routine) - Pending Review Specialty Diagnoses / Procedures Referred By Jason magallanes Referred To Contact Radiology Diagnoses Post-menopausal At risk for loss of bone density Procedures DX BONE DENSITY AXIAL SKELETON Mily Saunders DO [address] [place] [address] Phone: tel: fax: Referral ID Status Reason Start Date Expiration Date V isits Requested Visits Authorized [id number] Pending Review 06/20/2025 06/20/2026 1 1 Encounter Details Date Type Department Care Team (Late st Contact Info) Description 06/20/2025 Orders Only SEP [facility] [address] [place] [address] Mily Saunders DO [address] [place], [place] [phone] Post-menopausal; At risk for loss of bone density Social History Tobacco Use Types Packs/Day Years Used Date Smoking Tobacco: Never Passive Smoke Exposure: Past Smokeless Tobacco: Never Alcohol Use Standard Drinks/Week Comments No 0 (1 standard drink = 0.6 oz pur e alcohol) [facility] Utilities Answer Date Recorded In the past 12 months has th e electric, gas, oil, or water company threatened to shut off services in your home? No 02/13/2025 Overall Financial Resource Strain (CARDIA) Answe r Date Recorded How hard is it for you to pa y for the very basics like food, housing, medical care, and heating? Not hard at all 02/26/2025 PHQ-2 Answer Date Recorded PHQ-2 Total Score 0 05/09/2025 [facility] Occupat ional Health - Occupational [...] things needed for daily living? No 02/26/2025 [facility] IP Transportation Answer D ate Recorded In [...] AM EDT Office Visit SEP Sleep Medicine [facility] [address] [phone] Lelo Diaz APRN [address] [address] 02/14/2026 12:15 PM EDT Appointment [facility] [place] [address] Angel Luiskeegan Joanie A, LAST MODEL MAKER 1 [place] [address] 03/25/2026 11:00 AM EDT Office Visit SEP H&V [place] [address] [place] [address] Derik Aragon MD [address] [place] [address] Scheduled Orders Name Type Priority Associated Diagnoses Orde r Schedule DX BONE DENSITY AXIAL SKELETON Imaging Routine Post-menopausal At risk for loss of bone density 1 Occurrences starting 06/20/2025 until 06/20/2026 documented as of this encounter Goals Goal [...] as of this encounter Visit Diagnoses Diagnosis Post-menopausal Asymptomatic postmenopausal status (age-related) (natural) At risk for loss of bone density Other specified conditions influencing health status documented in this encounter Additional Health Concerns Assessment Noted Time A fall risk assessment has been complete d for the patient 05/31/2024 8:53 AM EDT documented as of this encounter Care Teams Domestic Technician Relationship Specialty Start Date End Date Mily Saunders DO [address] [place], [place] [phone] PCP - General Family Medicine 12/16/23 Yolande Melgar DO Referring Physician Obstetrics & Gynecology 01/20/22 Shane Clay MD 1 [place] [address] Consulting Physician Obstetrics & Gynecology-Gynecologic Oncology 01/20/22 documented as of this encounter
--- OUTSIDE RECORDS SUMMARY | 2025-08-18 03:25 | XMS_ITS | Encounter Summary ---
Author Organization [place] Address [email or web address] [address] Care Team Providers Care Blackjack Supervisor Name Role Phone Yolande Melgar DO Unavailable [phone] Shane Clay MD Unavailable [phone] Mily Saunders DO Primary Care Provider [phone] Reason for Visit * Reason Onset Date Comments Medication Management 06/06/2025 alicialonrbala said doctor denied or needs extra information for a medication. She is not sure which one but she is getting frustrated and wants to know what to do. Encounter Details Date Type Department Care Team (Late st Contact Info) Description 06/06/2025 Telephone SEP [place] [address] [place] [address] Mily Saunders, DO [address] [place] [phone] Medication Management (carelonrx said doctor denied or needs extra information for a medication. She is not sure which one but she is getting frustrated and wants to know what to do. ) Social History Tobacco Use Types Packs/Day Years Used Date Smoking Tobacco: Never Passive Smoke Exposure: Past Smokeless Tobacco: Never Alcohol Use Standard Drinks/Week Comments No 0 (1 standard drink = 0.6 oz pur e alcohol) [facility] Utilities Answer Date Recorded In the past [...] Date Recorded PHQ-2 Total Score 0 05/09/2025 [facility] - Occupational [...] things needed for daily living? No 02/26/2025 [facility] IP Transportation Answer D ate Recorded [...] 9:42 AM ALISSON Cherisedonemir linares Corettaadis Casarez, RMA * Is the person blind or does he/she have serious difficulty seeing even when wearing glasses? Answer Date of Assessment Author No 11/19/2021 9:42 AM ALISSON linares Corettaadis Casarez, RMA * Does this person have serious difficulty walking or climbing stairs? Answer Date of Assessment Author No 11/19/2021 9:42 AM ALISSON Hicks vijay Corettaadis Casarez, RMA * Does this person have difficulty dressing or bathing? Answer Date of Assessment Author No 11/19/2021 9:42 AM ALISSON Hicks vijay Corettaadis Casarez, RMA * Because of a physical, mental or emotional condition, does this person have difficulty doing errands alone such as visiting a doctor's office or shopping? Answer Date of Assessment Author No 11/19/2021 9:42 AM ALISSON Coretta Evangelista RMA documented as of this encounter Mental Status * Because of a physical, mental or emotional condition, does this person have serious difficulty concentrating, remembering or making decisions? Answer Entry Date Author No 11/19/2021 9:42 AM ALISSON Cherisedonemir linares Corettaadis Casarez RMA documented in this encounter Miscellaneous Notes * Telephone Encounter - Martha Monae MA - 06/06/2025 1:52 PM EDT Patient said she is not sure what medication was in regards to. I will be on the lookout for anything from [facility], I advised her to call them to see what they were talking about. * Telephone Encounter - Mily Saunders DO - 06/06/2025 1:29 PM EDT We have not received anything from [facility]. I resent the eliquis just in case. But she may need to provide us with more information in order for us to help. Or [facility] told her they sent because we did not receive anything * Telephone Encounter - Anibal Fish MA - 06/06/2025 12:43 PM EDT Please advise, thanks. * Telephone Encounter - Abrahan Thorpe - 06/06/2025 12:34 PM EDT Select the most appropriate reason for this telephone message: Medication Management/Problem Who is calling? Patient What medication(s) do you have concerns about: pt not sure which medication. Prescribing provider: fermin What are your concerns/request: haley said doctor denied or needs extra information for a medication. She is not sure which one but she thinks it may be eliquis but is getting frustrated and wants to know what to do. Desired outcome: Other advise Last appointment date: 05/09 Pharmacy: [facility] Return Method of Communication: Phone Call Additional Information: please advise pt documented in this encounter Plan of Treatment Upcoming Encounters Date Type Department Care Team (Late st Contact Info) Description 02/06/2026 11:30 AM EDT Office Visit SEP Sleep Medicine [facility] [address] [phone] Lelo Diaz SPRAY RIG OPERATOR [address] [address] 02/14/2026 12:15 PM EDT Appointment [facility] [address] [place] [address] Joanie Maldonado APRN 1 [place] [address] 03/25/2026 11:00 AM EDT Office Visit SEP H&V [place] 711 [place] [address] Derik Aragon MD [address] [facility] [place] [address] documented as of this encounter Goals Goal [...] documented as of this encounter Care Teams Blackjack Supervisor Relationship Specialty Start Date End Date Mily Saunders DO [address] [place] [address] PCP - General Family Medicine 12/16/23 Yolande Melgar DO Referring Physician Obstetrics & Gynecology 01/20/22 Shane [place] MD [address] [place] [address] [place] [id number] Consulting Physician Obstetrics & Gynecology-Gynecologic Oncology 01/20/22 documented as of this encounter
--- OUTSIDE RECORDS SUMMARY | 2025-08-18 03:25 | XMS_ITS | Encounter Summary ---
Author Organization [place] Address [place] [address] Care Team Providers Care Sheet Manufacturing Supervisor Name Role Phone Yolande Melgar DO Unavailable [phone] Shane Clay MD Unavailable [phone] Mily Saunders DO Primary Care Provider + [phone] Reason for Visit * Reason Comments Medication Refill Encounter Details Date Type Department Care Team (Late st Contact Info) Description 06/19/2025 Refill SEP Claudia [address] [place] [address] Mily Saunders DO [address] [place] [address] Medication Refill Social History Tobacco Use Types Packs/Day Years Used Date Smoking Tobacco: Never Passive Smoke Exposure: Past Smokeless Tobacco: Never Alcohol Use Standard Drinks/Week Comments No 0 (1 standard drink = 0.6 oz pur e alcohol) [facility] Utilities Answer Date Recorded In the past 12 months has [employer], gas, oil, or water [employer] threatened to shut off services in your home? No 02/13/2025 Overall Financial Resource Strain (CARDIA) Dulce r Date Recorded How hard is it for you to pa y for the very basics like food, housing, medical care, and heating? Not hard at all 02/26/2025 PHQ-2 Answer Date Recorded PHQ-2 Total Score 0 05/09/2025 [facility] - [facility]ational Stress Questionnaire Answer Date Recorded [...] things needed for daily living? No 02/26/2025 [facility] IP Transportation Answer D ate [...] Assessment Author No 11/19/2021 9:42 AM ALISSON CherisedonCoretta soto RMPinky * Does this person have difficulty dressing or bathing? Answer Date of Assessment Author No 11/19/2021 9:42 AM ALISSON linares Corettaadis Casarez ROSEMARY * Because of a physical, mental or emotional condition, does this person have difficulty doing errands alone such as visiting a doctor's office or shopping? Answer Date of Assessment Author No 11/19/2021 9:42 AM Sean Priceadis Casarez ROSEMARY documented as of this encounter Mental Status * Because of a physical, mental or emotional condition, does this person have serious difficulty concentrating, remembering or making decisions? Answer Entry Date Author No 11/19/2021 9:42 AM ALISSON Cherisedonemir linares Corettaadis Casarez ROSEMARY documented in this encounter Ordered Prescriptions Prescription Sig Dispense Quantity Refills Last Filled Start Date End Date ELIQUIS 5 mg Oral TabletIndications: Carotid artery disease without cerebral infarction TAKE 1 TABLET BY MOUTH TWICE A DAY 60 Tablet 06/19/2025 07/19/2025 documented in this encounter Plan of Treatment Upcoming Encounters Date Type Department Care Team (Late st Contact Info) Description 02/06/2026 11:30 AM EDT Office Visit SEP Sleep Medicine [facility] [address] [address] Lelo Diaz, SENIOR MECHANICAL DESIGN ENGINEER [address] [address] 02/14/2026 12:15 PM EDT Appointment [facility] [address] [facility] [place] [address] Joanie Maldonado, SENIOR MECHANICAL DESIGN ENGINEER 1 [place] [address] 03/25/2026 11:00 AM EDT Office Visit SEP H&V [address] [address] Derik Aragon MD [address] [facility] [place] [address] documented as of this encounter [...] Discontinue Reason Start Date End Da te apixaban (ELIQUIS) 5 mg Oral TabletIndications:Caroti d artery disease without cerebral infarction Take 1 Tablet by mouth 2 times daily. 06/06/2025 06/19/2025 documented as of this encounter Additional Health Concerns Assessment Noted Time A fall risk assessment has been complete d for the patient 05/31/2024 8:53 AM EDT documented as of this encounter Care Teams Sheet Manufacturing Supervisor Relationship Specialty Start Date End Date Mily Saunders DO [address] [place] [address] PCP - General Family Medicine 12/16/23 Yolande Melgar DO Referring Physician Obstetrics & Gynecology 01/20/22 Shane Clay MD 1 [facility] [place] [phone] Consulting Physician Obstetrics & Gynecology-Gynecologic Oncology 01/20/22 documented as of this encounter
--- OUTSIDE RECORDS SUMMARY | 2025-08-18 03:25 | XMS_ITS | Encounter Summary ---
Author Organization [facility] Address [place] [address] Care Team Providers Care Boat Rigger Name Role Phone Yolande Melgar DO Unavailable [phone] Shane Clay MD Unavailable [phone] Mily Saunders DO Primary Care Provider + [phone] Reason for Visit * Reason Onset Date Comments Results 05/24/2025 Lab: A1C Patient Returning Call 05/24/2025 Medicatio n Adjustments Encounter Details Date Type Department Care Team (Late st Contact Info) Description 05/24/2025 Results Follow-Up [facility] [place] [address] [place] [address] Mily Saunders DO [address] [facility] [place] [address] HEMOGLOBIN A1C Social History Tobacco Use Types Packs/Day Years Used Date Smoking Tobacco: Never Passive Smoke Exposure: Past Smokeless Tobacco: Never Alcohol Use Standard Drinks/Week Comments No 0 (1 standard drink = 0.6 oz pur e alcohol) [facility] Utilities Answer Date Recorded In the past 12 months has [employer] electric, gas, oil, or water company threatened to shut off services in your home? No 02/13/2025 Overall Financial Resource Strain (CARDIA) Dulce r Date Recorded How hard is it for you to pa y for the very basics like food, housing, medical care, and heating? Not hard at all 02/26/2025 PHQ-2 Answer Date Recorded PHQ-2 Total Score 0 05/09/2025 [facility] - Occupational Stress Questionnaire Answer Date Recorded [...] things needed for daily living? No 02/26/2025 [facility] IP Transportation Answer D ate Recorded [...] No 11/19/2021 9:42 AM ALISSON linares Coretta Leida, CARIDADA * Does this person have serious difficulty walking or climbing stairs? Answer Date of Assessment Author No 11/19/2021 9:42 AM ALISSON linares Coretta Leida, RMA * Does this person have difficulty dressing or bathing? Answer Date of Assessment Author No 11/19/2021 9:42 AM ALISSON linares Coretta Leida, RMA * Because of a physical, mental [...] Date Author No 11/19/2021 9:42 AM ALISSON linares Coretta Leida ROSEMARY documented in this encounter Miscellaneous Notes * Telephone Encounter - Nancy Kingston MA - 05/31/2025 11:10 AM EDT Images from the original note were not included. Select the most appropriate reason for this telephone message: Patient Returning Call Reason for call: Pt returning call related to what she should do on her medications. Information relayed to patient: Mily Saunders, DO to Martha Monae MA 05/30/25 5:05 PM Yes that would be fine. She should increase her metformin back up and restart the glyburide Patient has additional questions: No Further follow-up needed? no Return Method of Communication: N/A Additional Information: FYI-Pt advised of the following message and verbalized understating. * Telephone Encounter - Archana Jenkins MA - 05/30/2025 9:19 AM EDT Images from the original note were not included. Select the most appropriate reason for this telephone message: Patient Calling for Results Patient called for results on Lab A1C Which Provider ordered the test? Dr. Saunders Date of test: 05/24/25 Advised patient of: abnormal result. Patient Instructions/ Questions: Pt states she has Glyburide 10 [address] Nelson discontinued or she can go back to Metformin 1000 mg. Pt states she is currently staying with her daughter & doesn't have a way to the office since she cannot drive. Please advise pt. Medications Ordered/Pended (if yes, list medication): No Medications/Orders Needed (if yes, list orders): Yes diabetic med management Pharmacy Location Verified: No Other: Please put in the patient results note that pt is aware of the following results documented in this encounter Plan of Treatment Upcoming Encounters Date Type Department Care Team (Late st Contact Info) Description 02/06/2026 11:30 AM EDT Office Visit [facility] [place] Medicine [facility] [address] [place] [phone] Lelo Diaz, CLINICAL NURSING COORDINATOR [address] [address] 02/14/2026 12:15 PM EDT Appointment [facility] [address] [place] [address] Joanie Maldonado, CLINICAL NURSING COORDINATOR 1 [place] [address] 03/25/2026 11:00 AM EDT Office Visit [facility] H&V [address] [address] Derik Aragon MD [address] [place] [address] documented as of this encounter Goals Goal Patient Goal Type Associated Problems Recent Progress Patient-Stated? Author Blood Pressure < 140/90 Blood Pressure 110/80(2024 10:25 AM EST) No Coretta Rodarte RMA BMI (Calculated) < 30 General 43.5(08/17/20 25 10:25 AM EST) No Coretta Rodarte RMA [...] documented as of this encounter Care Teams Boat Rigger Relationship Specialty Start Date End Date Mily Saunders DO [address] [place] [address] PCP - General Family Medicine 12/16/23 Yolande Melgar DO Referring Physician Obstetrics & Gynecology 01/20/22 Shane Clay MD [address] [place] [address] [place] [address] Consulting Physician Obstetrics & Gynecology-Gynecologic Oncology 01/20/22 documented as of this encounter
--- OUTSIDE RECORDS SUMMARY | 2025-08-18 03:25 | XMS_ITS | Encounter Summary ---
Author Organization [place] [address] Care Team Providers Care Meeting Coordinator Name Role Phone Yolande Melgar DO Unavailable [phone] Shane Clay MD Unavailable [phone] Mily Saunders DO Primary Care Provider [phone] Encounter Details Date Type Department Care Team (Late st Contact Info) Description 07/19/2025 Orders Only [facility]P [facility] [address] [place], [place] [phone] Mily Saunders DO [address] [place], [place] [id number] Social History Tobacco Use Types Packs/Day Years Used Date Smoking Tobacco: Never Passive Smoke Exposure: Past Smokeless Tobacco: Never Alcohol Use Standard Drinks/Week Comments No 0 (1 standard drink = 0.6 oz pur e alcohol) [facility] Utilities Answer Date Recorded In the past 12 months has e electric, gas, oil, or water company threatened to shut off services in your home? No 02/13/2025 Overall Financial Resource Strain (CARDIA) Anjele r Date Recorded How hard is it for you to pa y for the very basics like food, housing, medical care, and heating? Not hard at all 02/26/2025 PHQ-2 Answer Date Recorded PHQ-2 Total Score 0 05/09/2025 [facility] - Occupational Stress [...] things needed for daily living? No 02/26/2025 [facility] IP Transportation Answer D ate [...] No 11/19/2021 9:42 AM ALISSON Coretta Evangelista RMPinky * Does this person have difficulty dressing or bathing? Answer Date of Assessment Author No 11/19/2021 9:42 AM ALSISON Cherisedonemir linares Corettaadis Casarez ROSEMARY * Because of a physical, mental or emotional condition, does this person have difficulty doing errands alone such as visiting a doctor's office or shopping? Answer Date of Assessment Author No 11/19/2021 9:42 AM ALISSON Benavidezemir linares Corettaadis Casarez ROSEMARY documented as of this encounter Mental Status * Because of a physical, mental or emotional condition, does this person have serious difficulty concentrating, remembering or making decisions? Answer Entry Date Author No 11/19/2021 9:42 AM ALISSON CherisedonCoretta soto ROSEMARY documented in this encounter Plan of Treatment Upcoming Encounters Date Type Department Care Team (Late st Contact Info) Description 02/06/2026 11:30 AM EDT Office Visit [facility] Sleep Medicine [facility] [address] [phone] Lelo Diaz PIPING DESIGNER [address] [address] 02/14/2026 12:15 PM EDT Appointment [facility] [address] [place] [address] Joanie Maldonado APRN 1 [place] [address] 03/25/2026 11:00 AM EDT Office Visit [facility] [address] [address] Derik Aragon MD [address] [place] [address] Scheduled Orders Name Type Priority Associated Diagnoses Orde r Schedule ALBUMIN/CREATININE RATIO, RANDOM URINE Lab Routine 1 Occurrence s starting 07/19/2025 until 07/19/2026 documented as of this encounter Goals Goal Patient Goal Type Associated Problems Recent Progress Patient-Stated? Author Blood Pressure < 140/90 Blood Pressure 110/80(2024 10:25 AM EST) No Coretta Rodarte RMA BMI (Calculated) < 30 General 43.5(08/17/20 10:25 AM EST) No Coretta Rodarte RMPinky Maintain a healthy diet, exercise regularly and maintain an ideal body weight General No Coretta Rodarte RMA HEMOGLOBIN A1C < 7.0 Result Component 9.1( 12:06 PM EDT) No Coretta Rodarte RMPinky documented as of this encounter Visit Diagnoses Not on filedocumented in this encounter Additional Health Concerns Assessment Noted Time A fall risk assessment has been complete d for the patient 05/31/2024 8:53 AM EDT documented as of this encounter Care Teams Meeting Coordinator Relationship Specialty Start Date End Date Mily Saunders DO [employer] [place] [phone] PCP - General Family Medicine 12/16/23 Yolande Melgar DO Referring Physician Obstetrics & Gynecology 01/20/22 Shane Clay MD [address] [place] [address] [place] [phone] Consulting Physician Obstetrics & Gynecology-Gynecologic Oncology 01/20/22 documented as of this encounter
--- OUTSIDE RECORDS SUMMARY | 2025-08-18 03:25 | XMS_ITS | Encounter Summary ---
Author Organization [place] Address [place] [address] Care Team Providers Care Filter Washer And Presser Name Role Phone Yolande Melgar DO Unavailable [phone] Shane Clay MD Unavailable [phone] Mily Saunders DO Primary Care Provider + [phone] Reason for Visit * Reason Comments Medication Refill Encounter Details Date Type Department Care Team (Late st Contact Info) Description 06/25/2025 Refill SEP [facility] [address] [place] [address] Mily Saunders DO [address] [place] [address] Medication Refill Social History Tobacco Use Types Packs/Day Years Used Date Smoking Tobacco: Never Passive Smoke Exposure: Past Smokeless Tobacco: Never Alcohol Use Standard Drinks/Week Comments No 0 (1 standard drink = 0.6 oz pur e alcohol) [facility] Utilities Answer Date Recorded In the past 12 months has [employer], gas, oil, or water [employer] threatened to shut off services in your home? No 02/13/2025 Overall Financial Resource Strain (CARDIA) Dulce r Date Recorded How hard is it for you to pa y for the very basics like food, housing, medical care, and heating? Not hard at all 02/26/2025 PHQ-2 Answer Date Recorded PHQ-2 Total Score 0 05/09/2025 [facility] - Occupational Stress Questionnaire Answer [...] things needed for daily living? No 02/26/2025 [facility] IP Transportation Answer D ate Recorded [...] Author No 11/19/2021 9:42 AM Coretta Price, CARIDADA * Does this person have serious difficulty walking or climbing stairs? Answer Date of Assessment Author No 11/19/2021 9:42 AM Coretta Price Leida CARIDADA * Does this person have difficulty [...] Date Author No 11/19/2021 9:42 AM Coretta Price, ROSEMARY documented in this encounter Miscellaneous Notes * Telephone Encounter - Sully Lopez CPhT - 06/27/2025 6:22 AM EDT Atorvastatin Refill requested too soon. Refill denied. Last sent on 05/10/25 for a 90 day supply with 3 refills. Pt notified via [employer] if active. documented in this encounter Plan of Treatment Upcoming Encounters Date Type Department Care Team (Late st Contact Info) Description 02/06/2026 11:30 AM EDT Office Visit [facility] [address] [phone] Lelo Diaz, ROOM DESIGNER [address] [address] 02/14/2026 12:15 PM EDT Appointment [facility] [address] [place] [address] Joanie Maldonado, ROOM DESIGNER 1 [place] [address] 03/25/2026 11:00 AM EDT Office Visit [facility] [address] [place] [address] Derik Aragon MD [address] [facility] [place] [address] documented as of this encounter Goals Goal [...] as of this encounter Visit Diagnoses Diagnosis Type 2 diabetes mellitus with hyperglycemia, without long-term current use of insulin (HCC) Mixed hyperlipidemia due to type 2 diabetes mellitus (HCC) documented in this encounter Additional Health Concerns Assessment Noted Time A fall risk assessment has been complete d for the patient 05/31/2024 8:53 AM EDT documented as of this encounter Care Teams Filter Washer And Presser Relationship Specialty Start Date End Date Mily Saunders DO [address] [phone] PCP - General Family Medicine 12/16/23 Yolande Melgar DO Referring Physician Obstetrics & Gynecology 01/20/22 Shane Clay MD [address] [place] [address] [place] [phone] Consulting Physician Obstetrics & Gynecology-Gynecologic Oncology 01/20/22 documented as of this encounter
[2025-08-18] MEDS: ASPIRIN 81MG CHEWABLE TABLET 324 MG PO (03:27)
[2025-08-18] MEDS: LACTATED RINGERS 1000ML 1,000 ML 999 ML IV (03:27)
[2025-08-18 03:30] LABS: Alanine Aminotransferase 15 U/L (12-78); Albumin Level 4.2 g/dl (3.5-5.0); Albumin/Globulin Ratio 1.4 (1.1-1.8); Alkaline Phosphatase 63 U/L (38-126); Anion Gap 11.1 mEq/L (5-15); Aspartate Amino Transferase 17 U/L (14-36); Bilirubin,Total 0.4 mg/dl (0.2-1.3); Blood Urea Nitrogen 20 mg/dl (7-17); Calcium 9.7 mg/dl (8.4-10.2); Carbon Dioxide 26 mmol/L (22.0-30.0); Chloride 103 mmol/L (98-107); Creatinine Clearance Estimated 44 mL/min (50-200); Creatinine,Serum 0.80 mg/dl (0.52-1.04); Estimated Glomerular Filt Rate 70 ml/min (>60); GFR (African American) 84 ML/MIN (>60); Globulin 3.0 g/dL (1.3-3.2); Glucose 156 mg/dl (74-100); Lipase 113 U/L (23-300); Potassium 4.1 mmoL/L (3.5-5.1); Sodium 136 mmol/L (136-145); Total Protein,Serum 7.2 g/dl (6.3-8.2)
[2025-08-18] MEDS: SUCRALFATE 1GM/10ML SUSP UDC 1 GM PO (03:30)
[2025-08-18 03:31] LABS: INR 1.05 (0.9-1.1); Prothrombin Time 11.6 seconds (10.1-12.5)
[2025-08-18 03:45] LABS: Troponin I < 0.01 ng/ml (0.00-0.034)
[2025-08-18] MEDS: IOPAMIDOL-370 (76%);100ML BOTTLE 75 ML IV (03:50)
[2025-08-18] MEDS: SODIUM CHLORIDE 0.9% 10ML SYR (RAD ONLY) 10 ML IV (03:50)
[2025-08-18] MEDS: BELLADONNA ALKALOIDS 60 ML ML PO (04:44)
[2025-08-18 04:49] LABS: Microscopic, Urine URINE MICROSCOPIC (MICROSCOPIC)
[2025-08-18 04:56] LABS: Bilirubin,Urine Negative (Negative); Color,Urine YELLOW (Yellow); Glucose,Urine (UA) Negative (Negative); Ketones,Urine Negative (Negative); Leukocyte Esterase,Urine Negative (Negative); PH,Urine 6.5 (5.0-8.5); Protein,Urine Negative (Negative); Specific Gravity, Urine <= 1.005 (1.005-1.030); Urobilinogen,Urine 0.2 EU/dl (0.2)
[2025-08-18 05:01] LABS: Bacteria,Urine Trace /lpf
[2025-08-18] MEDS: RINGERS SOLUTION,LACTATED 500 ML 999 ML IV (05:02)
[2025-08-18 05:32] LABS: Troponin I 0.05 ng/ml (0.00-0.034)
--- NOTE | 2025-08-18 05:51 | ECG_ITS ---
APPROVED REPORT Exam: Resting ECG HR:73 bpm ECG Measurements Heart Rate 73 AXES UT 178 P 52 QRSd 93 QRS 26 QT 417 T -5 QTc 443 Conclusion SINUS RHYTHM NORMAL ECG UNCONFIRMED REPORT Electronically signed by : Jed Diaz MD 08/25/2025 08:36:48
[2025-08-18] MEDS: NITROGLYCERIN 0.4MG SL TABLET 0.4 MG SL (06:14)
--- NOTE | 2025-08-18 06:29 | XR_ITS ---
PROCEDURE INFORMATION: Exam: XR Chest Exam date and time: 08/18/2025 6:31 AM Age: 75 years old Clinical indication: Pain; Chest pressure; Additional info: Cp TECHNIQUE: Imaging protocol: Radiologic exam of the chest. Views: 1 view. COMPARISON: CT ABDOMEN PELVIS W CON 08/18/2025 3:47 AM FINDINGS: Lungs: Unremarkable. No consolidation. Pleural spaces: Unremarkable. No pleural effusion. No pneumothorax. Heart/Mediastinum: Unremarkable. No cardiomegaly. Bones/joints: Unremarkable. IMPRESSION: No acute findings.
[2025-08-18] MEDS: ENOXAPARIN 120MG/0.8ML SYRINGE 120 MG SUBCUT ×2 (06:38→18:40)
--- NOTE | 2025-08-18 06:40 | P.HP_ITS ---
<Statement entered by Nakul Fleming MD - 08/20/25 11:05> Agree with plan of care as outlined by the DOBIE WORKER. History of Present Illness *Admission Date: 08/18/25 *Reason for visit:: Chest pain *History of present illness: This is a 75-year-old female who has a past medical history significant for diabetes, hyperlipidemia, and CVA who presents with a chief complaint of substernal chest pain that radiates to the neck. Due to patient's symptoms, she presented to the emergency room for evaluation. While in the emergency room, CT scan of the abdomen and pelvis revealed no acute intra- abdominal intrapelvic process. Patient had serial troponins performed and the initial was normal and his subsequent was mildly elevated. Her case was discussed with the environmental health and safety leader on-call who recommended giving patient therapeutic dosing of Lovenox and continue to trend patient's troponin. As result of these recommendations, patient is being admitted for further management. During my evaluation of the patient, patient states her symptoms started approximately 5 hours prior to admission to the hospital. She reports her symptoms are consistent with burning, without any diaphoresis, without any shortness of air, and is still ongoing. She did get some nitro sublingual and she states her symptoms did improve however she can still feeling aching in her chest. She recently was evaluated by her primary director wholesale who recommended 6 months a 2D echo in 6 months. She has had previous stroke and she was told that something broke off. Patient is currently prescribed Eliquis send she did take her Eliquis last night. She is currently denying any lightheadedness, PND, orthopnea, shortness of breath, dyspnea, fever, chills, rigors, nausea, vomiting, diaphoresis, or diarrhea. Additional pertinent values obtained include a white blood cell count of 11.5, BUN of 20, blood glucose 156, and troponin 0.05. EKG revealed a sinus rhythm, T wave inversion in the inferior, QTc of 437, first-degree AV block, and normal axis-negative STEMI. [facility] Disclaimer: The information contained in this section may have been updated after the pat ient was seen, as this information can be updated by other users. Social History Smoking Status: Never smoker alcohol intake: never current occupational status: retired Travel in the last 8 weeks?: None Review of Systems Review of Systems Review of systems:: pertinent systems reviewed and negative unless documented below Constitutional Constitutional: Reports system reviewed and no additional complaints, except as documented Eyes Eyes: Reports system reviewed and no additional complaints, except as documented ENT Ears, Nose, Mouth, and Throat: Reports system reviewed and no additional co mplaints, except as documented *Cardiovascular Cardiovascular: Reports chest pain and Reports chest pain at rest *Respiratory Respiratory: Reports system reviewed and no additional complaints, except as documented *Gastrointestinal Gastrointestinal: Reports system reviewed and no additional complaints, except as documented *Genitourinary Genitourinary: Reports system reviewed and no additional complaints, except as documented *Musculoskeletal Musculoskeletal: Reports system reviewed and no additional complaints, except as documented Integumentary/Breasts Skin/Breast: Reports system reviewed and no additional complaints, except as documented *Neurologic Neurologic: Reports system reviewed and no additional complaints, except as documented Psychiatric Psychiatric: Reports system reviewed and no additional complaints, except as documented Endocrine Endocrine: Reports system reviewed and no additional complaints, except as documented Hematologic/Lymphatic Hematologic/Lymphatic: Reports system reviewed and no additional complaints, except as documented Allergic/Immunologic Allergic/Immunologic: Reports system reviewed and no additional complaints, except as documented Meds Home Medications and Allergies New Prescriptions to Start Prescriptions: Allergies Allergy/AdvReac Type Severity Reaction Status Date / Time No Known Allergies Allergy Verified 08/18/25 02:54 Exam Data for Last 24 hours Vital signs and Labs for Last 24 Hours: Temp Pulse Resp BP Pulse Ox O2 Del Method 98.6 F 73 14 121/66 96 Room Air 08/18/25 02:56 08/18/25 06:15 08/18/25 06:15 08/18/25 06:15 08/18/25 06:15 08/18/25 06:15 Laboratory Results - last 24 hr 08/18/25 03:05: WBC 11.5 H, RBC 4.41, Hgb 12.2, Hct 38.8, MCV 88.0, MCH 27.7, MCHC 31.4 L, RDW 13.0, Plt Count 285, MPV 11.4 H, Neut % (Auto) 75.5, Lymph % (Auto) 15.6, Washburn % (Auto) 6.2, Eos % (Auto) 1.7, Baso % (Auto) 0.4, Neut # (Auto) 8.6 H, Lymph # (Auto) 1.8, Washburn # (Auto) 0.7, Eos # (Auto) 0.2, Baso # (Auto) 0.1, PT 11.6, INR 1.05, Sodium 136, Potassium 4.1, Chloride 103, Carbon Dioxide 26, Anion Gap 11.1, BUN 20 H, Creatinine 0.80, Estimated Creat Clear 44, Estimated GFR 70, Est GFR ( Amer) 84, Glucose 156 H, Lactate 1.5, Calcium 9.7, Total Bilirubin 0.4, AST 17, ALT 15, Alkaline Phosphatase 63, Troponin I < 0.01, Total Protein 7.2, Albumin 4.2, Globulin 3.0, Albumin/Globulin Ratio 1.4, Lipase 113 08/18/25 04:45: Urine Color Yellow, Urine Appearance Clear, Urine pH 6.5, Ur Specific Parma <= 1.005, Urine Protein Negative, Urine Glucose (UA) Negative, Urine Ketones Negative, Urine Blood Negative, Urine Nitrate Negative, Urine Bilirubin Negative, Urine Urobilinogen 0.2, Ur Leukocyte Esterase Negative, Urine RBC None, Urine WBC None, Ur Squamous Epith Cells 3-5, Urine Bacteria Trace 08/18/25 05:04: Troponin I 0.05 H I & O for Last 24 hours: Intake & Output 08/15/25 08/16/25 08/17/25 08/18/25 23:59 23:59 23:59 23:59 Intake Total 1500 / 1500 Balance 1500 / 1500 Weight 122.016 kg Constitutional Constitutional: no acute distress, morbidly obese and cooperative *Routine HEENT Exam Head: Present normocephalic and atraumatic Eye: Present EOMI and PERRL ENT: Present mucous membranes moist *Routine Neck Exam Neck: Present supple, full ROM and trachea midline *Routine Respiratory Exam Respiratory: Present CTA bilaterally, able to speak in complete sentences and symmetric chest movement *Routine Cardiovascular Exam Cardiovascular: Present RRR, Normal S1 and Normal S2 *Routine Abdominal Exam Abdominal: Present soft, normoactive bowel sounds and obese *Routine Rectal Exam Rectal:: deferred *Routine Genitalia Exam Genitalia:: deferred *Routine Extremities Exam Extremities: Present full ROM, pulses intact and normal capillary refill Routine Back/Spine/Pelvis Exam Back/Spine: Present full ROM *Routine Skin Exam Skin: Present dry, warm and normal turgor *Routine Neurological Exam Neurological: Present alert, oriented X3, CN II-XII intact and moving all extremities Routine Psychiatric Exam Psychiatric: Present normal affect, normal thought process, cooperative, good insight and good judgment H&P: Result Impressions 75-year-old female presents with chest pain and has a prior history of CVA which is concerning for thrombolytic stroke because patient is prescribed Eliquis. Has ongoing chest pain with ischemic changes in inferior and mild elevation of the troponin Assessment and Plan *Assessment and plan (1) Non-ST elevation CT (NSTEMI): Status: Acute Category: Medical Code(s): I21.4 - Non-ST elevation (NSTEMI) myocardial infarction (2) Hyperglycemia: Status: Acute Category: Medical Code(s): R73.9 - Hyperglycemia, unspecified Plan Assessment: Chest pain NSTEMI Ischemic changes seen on EKG - We will follow the recommendations of environmental health and safety leader is given patient therapeutic dosing Lovenox - We will continue to trend patient's troponins every 6 hours - Obtain 2D echo - During my discussion with patient, she was against having left heart cath perf ormed but was willing to have troponins trended while in the hospital. - Patient states she wants time to think about left heart cath - Patient did receive nitro and had a 40 mmHg decrease in her repeat blood pressure - Will give nitro cautiously Hyperglycemia - Accu-Cheks AC and at bedtime with mild scale sliding coverage Plan: Admit patient to the MedSurg unit CBC/BMP daily Saline lock Vital signs every 4 hours 1800 ADA/cardiac diet Patient did receive 325 mg of aspirin while in the emergency room 5 mg Iroquois p.o. every 4 hours PMR pain 2 mg morphine IV push every 2 hours as needed severe pain 4 mg Zofran IV push every 8 hours for nausea DNR I will discussed this case with attending physician Dr. Fleming and I look forward to more input
--- NOTE | 2025-08-18 06:59 | PC.NURSE ---
Patient arrived to floor via wheelchair from ED at 06:58.
[2025-08-18] MEDS: HYDROCODONE/APAP 5/325 MG TABLET 1 TAB PO (08:23)
[2025-08-18 09:10] LABS: Troponin I 0.33 ng/ml (0.00-0.034)
--- NOTE | 2025-08-18 09:14 | HMH.PHAINT1 ---
Pharmacy Intervention Comments: MEDICATION RECONCILIATION COMPLETE USING RX BOTTLES AND LIST PROVIDED BY PATIENT.
[2025-08-18 10:04] LABS: Cholesterol 118 mg/dl (140-200); HDL Cholesterol 55 mg/dl (40-60); Triglycerides 110 mg/dl (30-150)
[2025-08-18 10:36] LABS: Thyroid Stimulating Hormone 2.81 uIU/mL (0.465-4.68)
[2025-08-18] MEDS: METOPROLOL SUCCINATE XL 25MG TABLET 25 MG PO (10:52)
[2025-08-18 11:03] LABS: Hemoglobin A1C 8.0 % (4.0-6.0)
[2025-08-18 11:12] LABS: Troponin I 0.98 ng/ml (0.00-0.034)
[2025-08-18 11:19] LABS: POC Glucose,Bedside 111 gm/dL (70-110)
[2025-08-18 13:02] LABS: Iron 64 ug/dL (37-170)
[2025-08-18 13:11] LABS: Total Iron Binding Capacity 371 ug/dL (265-497)
[2025-08-18 13:37] LABS: Ferritin 59.2 ng/ml (11.1-264)
[2025-08-18 13:52] LABS: Vitamin B12 256 pg/mL (239-931)
[2025-08-18 16:11] LABS: Troponin I 2.08 ng/ml (0.00-0.034)
--- NOTE | 2025-08-18 16:15 | ECG_ITS ---
APPROVED REPORT Exam: Resting ECG HR:68 bpm ECG Measurements Heart Rate 68 AXES AZ 153 P -72 QRSd 92 QRS 18 QT 414 T 15 QTc 432 Conclusion SINUS RHYTHM LOW QRS VOLTAGE IN PRECORDIAL LEADS [QRS DEFLECTION < 1.0 mV IN CHEST LEADS] BORDERLINE ECG UNCONFIRMED REPORT Electronically signed by : Jed Diaz MD 08/19/2025 12:41:48
--- NOTE | 2025-08-18 16:58 | PC.NURSE ---
notified of critical troponin- 2.08
[2025-08-18 17:32] LABS: POC Glucose,Bedside 158 gm/dL (70-110)
[2025-08-18] MEDS: ATORVASTATIN 40MG TABLET 40 MG PO (20:27)
[2025-08-18 20:38] LABS: POC Glucose,Bedside 143 gm/dL (70-110)
[2025-08-19] VITALS (8 sets, daily range): BP systolic 139–166; BP diastolic 71–90; PULSE 67–107; RESP 14–18; TEMP 36.5–37.1; O2SAT 95–96; BMI 42.8
--- NOTE | 2025-08-19 03:33 | PC.NURSE ---
Pt is A&OX4 and has tolerated room air. She has denied any chest pain or shortness of breath this shift. ACHS finger stick. She did get up to the chair requiring x1 assist. Purewick has remained in place. No complaints at this time, call light within reach.
[2025-08-19] MEDS: ENOXAPARIN 120MG/0.8ML SYRINGE 120 MG SUBCUT ×2 (06:21→17:42)
[2025-08-19] MEDS: humaLOG 100 UNITS/ML 10ML VIAL (SSI) SUBCUT ×3 (06:23→20:13)
[2025-08-19 06:58] LABS: Hematocrit 37.0 % (37.0-47.0); Hemoglobin 11.7 g/dL (12.2-16.2); Immature Granulocytes % 0.6 %; Mean Corpuscular HGB Conc 31.6 g/dL (31.8-35.4); Mean Corpuscular Hemoglobin 27.5 pg (27.0-31.2); Mean Corpuscular Volume 87.1 fl (81-99); Nucleated Red Blood Cells % 0 %; Platelet Count 279 K/mm3 (142-424); Red Blood Count 4.25 M/mm3 (4.20-5.40); Red Cell Distribution Width-SD 41.3 fL; White Blood Count 7.1 K/mm3 (4.8-10.8)
[2025-08-19 07:09] LABS: Anion Gap 6.8 mEq/L (5-15); Blood Urea Nitrogen 13 mg/dl (7-17); Calcium 9.1 mg/dl (8.4-10.2); Carbon Dioxide 25 mmol/L (22.0-30.0); Chloride 104 mmol/L (98-107); Creatinine Clearance Estimated 44 mL/min (50-200); Creatinine,Serum 0.80 mg/dl (0.52-1.04); Estimated Glomerular Filt Rate 70 ml/min (>60); GFR (African American) 84 ML/MIN (>60); Glucose 154 mg/dl (74-100); Potassium 3.8 mmoL/L (3.5-5.1); Sodium 132 mmol/L (136-145)
[2025-08-19 08:34] LABS: Folate 7.91 ng/mL
[2025-08-19] MEDS: METOPROLOL SUCCINATE XL 25MG TABLET 25 MG PO (08:55)
[2025-08-19] MEDS: ASPIRIN EC 81MG TABLET 81 MG PO (08:55)
[2025-08-19 10:56] LABS: POC Glucose,Bedside 155 gm/dL (70-110)
[2025-08-19 11:14] LABS: Troponin I 1.49 ng/ml (0.00-0.034)
--- NOTE | 2025-08-19 15:36 | EXP.EVENT.NO ---
Advance care planning discussion. Personnel present: Patient, son (Saji Lara), granddaughter (Henna Lara), and me. Belinda Lara is a 75-year-old female who presented with left-sided chest pain and was admitted for NSTEMI. #Chest pain #NSTEMI ? Patient presented with left-sided chest pain, troponin peaked at 2.08 and down trended to 1.49. ? Patient did have intermittent chest pains yesterday, refused Nitropaste. Today, patient states her chest pains have mostly resolved. ? Extensive discussed with patient regarding symptoms and left heart cath. At this time, patient is very anxious about LHC as well as her chest pain. She understands if LHC is not performed, this could worsen an underlying coronary event. She would like to speak to her son this afternoon who is flying from out of town before proceeding with LHC tomorrow. Had another extensive discussion with patient and son at bedside. Patient is very anxious about procedure, did not initially know if she wanted as she has had a rough last couple years and does not know how long she will live per her. However, at the same time she is interested in the upcoming bilateral total knee replacement for which she understands she needs cardiac preoperative assessment. Discussed with patient that she would likely benefit from that operation, at which point patient was amenable to undergoing LHC tomorrow. ED Time spent: 45 minutes.
[2025-08-19 16:31] LABS: POC Glucose,Bedside 147 gm/dL (70-110)
--- NOTE | 2025-08-19 17:09 | PC.NURSE ---
Pt is A&Ox4. Vital signs stable tolerating room air. Pt denies having any chest pain this shift. Pt has refused scheduled nitro paste d/t not having any chest pain. Pt has sat up in the chair most of this shift. ECHO ordered. Pt resting comfortably in the chair with no further needs voiced at this time. Call light within reach.
--- NOTE | 2025-08-19 17:26 | P.PN_ITS ---
Subjective *Date: 08/19/25 *Time: 17:26 Interval history: Patient's chest pain is resolving, troponins downtrending. She is very anxious about her chest pain, LHC. Does not know if she wants to pursue LHC. Wants to son who is flying from out of town to come see her in the hospital. Anxious, tearful exam. Ruminates about her late and daughter who a few years ago. Exam Data for Last 24 hours Vital signs and Labs for Last 24 Hours: Temp Pulse Resp BP Pulse Ox O2 Del Method 98.6 F 75 18 144/82 H 96 Room Air 08/19/25 16:00 08/19/25 16:00 08/19/25 16:00 08/19/25 16:00 08/19/25 16:00 08/19/25 17:00 Laboratory Results - last 24 hr 08/18/25 17:22: POC Glucose 158 H 08/18/25 20:26: POC Glucose 143 H 08/19/25 06:35: WBC 7.1 D, RBC 4.25, Hgb 11.7 L, Hct 37.0, MCV 87.1, MCH 27.5, MCHC 31.6 L, RDW 13.1, Plt Count 279, MPV 11.6 H, Neut % (Auto) 57.7, Lymph % (Auto) 30.4, [place] % (Auto) 7.7, Eos % (Auto) 3.0, Baso % (Auto) 0.6, Neut # (Auto) 4.1, Lymph # (Auto) 2.2, [place] # (Auto) 0.6, Eos # (Auto) 0.2, Baso # (Auto) 0.0, Sodium 132 L, Potassium 3.8, Chloride 104, Carbon Dioxide 25, Anion Gap 6.8, BUN 13 D, Creatinine 0.80, Estimated Creat Clear 44, Estimated GFR 70, Est GFR ( Amer) 84, Glucose 154 H, Calcium 9.1, Folate 7.91 08/19/25 06:36: Troponin I 1.49 H 08/19/25 10:49: POC Glucose 155 H 08/19/25 16:20: POC Glucose 147 H I & O for Last 24 hours: Intake & Output 08/16/25 08/17/25 08/18/25 08/19/25 23:59 23:59 23:59 23:59 Intake Total 2460 / 2710 910 / 910 Output Total 2650 / 3050 2700 / 2700 Balance -190 / -340 -1790 / -1790 Weight 122.016 kg 120.928 kg Constitutional Constitutional: no acute distress and obese *Routine HEENT Exam Head: Present normocephalic Eye: Present EOMI and PERRL ENT: Present mucous membranes moist *Routine Neck Exam Neck: Present supple; Absent lymphadenopathy *Routine Respiratory Exam Respiratory: Present CTA bilaterally *Routine Cardiovascular Exam Cardiovascular: Present RRR *Routine Abdominal Exam Abdominal: Present soft and normoactive bowel sounds; Absent tenderness *Routine Extremities Exam Extremities: Absent cyanosis, clubbing or edema *Routine Skin Exam Skin: Present warm; Absent rash *Routine Neurological Exam Neurological: Present alert and oriented X3 Assessment and Plan *Assessment and plan (1) Non-ST elevation [place] (NSTEMI): Status: Acute Category: Medical Code(s): I21.4 - Non-ST elevation (NSTEMI) myocardial infarction (2) Type 2 diabetes mellitus: Status: Acute Category: Medical Code(s): E11.9 - Type 2 diabetes mellitus without complications (3) History of CVA (cerebrovascular accident): Status: Acute Category: Medical Code(s): Z86.73 - Personal history of transient ischemic attack (TIA), and cerebral infarction without residual deficits Plan Belinda Lara is a 75-year-old female who presented with left-sided chest pain and was admitted for NSTEMI. #Chest pain #NSTEMI ? Patient presented with left-sided chest pain, troponin peaked at 2.08 and down trended to 1.49. Patient is a non-smoker. ? Patient did have intermittent chest pains yesterday, refused Nitropaste. Today, patient states her chest pains have mostly resolved. ? Extensive discussed with patient regarding symptoms and left heart cath. At this time, patient is very anxious about LHC as well as her chest pain. She understands if LHC is not performed, this could worsen an underlying coronary event. She would like to speak to her son this afternoon who is flying from out of town before proceeding with LHC tomorrow. ? Patient has significant anxiety, including depression, ever since losing her and daughter 2 years ago. She is tearful on exam thinking about them. It is possible that Takotsubo cardiomyopathy may be contributing to NSTEMI. ? Continue aspirin 81 mg, atorvastatin 40 mg, therapeutic Lovenox. ? Follow-up ECHO in the morning. ? A1c 8.0%, LDL 54, TSH normal. ? Cardiology consulted, pending further recommendations. #Type 2 diabetes ? LDSSI, ACHS glucose checks. #History of CVA ? Apparently takes Eliquis. Continue therapeutic Lovenox. DNR/DNI DVT prophylaxis: Therapeutic Lovenox
[2025-08-19] MEDS: ATORVASTATIN 40MG TABLET 40 MG PO (20:14)
[2025-08-19 20:24] LABS: POC Glucose,Bedside 177 gm/dL (70-110)
[2025-08-20] VITALS (17 sets, daily range): BP systolic 117–157; BP diastolic 62–87; PULSE 65–86; RESP 14–20; TEMP 36.6–37.1; O2SAT 90–97; BMI 42.2
--- NOTE | 2025-08-20 04:38 | PC.NURSE ---
Pt is A&OX4 and has tolerated room air. Pt has worn home Cpap for part of the shift. She has denied any chest pain or shortness of breath this shift. She did ambulate to the bathroom with standby assist. No complaints at this time, call light within reach.
[2025-08-20] MEDS: humaLOG 100 UNITS/ML 10ML VIAL (SSI) SUBCUT ×3 (06:07→16:57)
[2025-08-20] MEDS: ENOXAPARIN 120MG/0.8ML SYRINGE 120 MG SUBCUT (06:08)
[2025-08-20 06:19] LABS: POC Glucose,Bedside 166 gm/dL (70-110)
[2025-08-20 06:26] LABS: Hematocrit 38.2 % (37.0-47.0); Hemoglobin 11.9 g/dL (12.2-16.2); Immature Granulocytes % 0.5 %; Mean Corpuscular HGB Conc 31.2 g/dL (31.8-35.4); Mean Corpuscular Hemoglobin 27.2 pg (27.0-31.2); Mean Corpuscular Volume 87.2 fl (81-99); Nucleated Red Blood Cells % 0 %; Platelet Count 285 K/mm3 (142-424); Red Blood Count 4.38 M/mm3 (4.20-5.40); Red Cell Distribution Width-SD 41.2 fL; White Blood Count 8.3 K/mm3 (4.8-10.8)
[2025-08-20 06:43] LABS: Alanine Aminotransferase 15 U/L (12-78); Albumin Level 3.7 g/dl (3.5-5.0); Albumin/Globulin Ratio 1.3 (1.1-1.8); Alkaline Phosphatase 53 U/L (38-126); Anion Gap 9.8 mEq/L (5-15); Aspartate Amino Transferase 31 U/L (14-36); Bilirubin,Total 0.6 mg/dl (0.2-1.3); Blood Urea Nitrogen 15 mg/dl (7-17); Calcium 9.5 mg/dl (8.4-10.2); Carbon Dioxide 25 mmol/L (22.0-30.0); Chloride 103 mmol/L (98-107); Creatinine Clearance Estimated 44 mL/min (50-200); Creatinine,Serum 0.90 mg/dl (0.52-1.04); Estimated Glomerular Filt Rate 61 ml/min (>60); GFR (African American) 73 ML/MIN (>60); Globulin 2.9 g/dL (1.3-3.2); Glucose 168 mg/dl (74-100); Potassium 3.8 mmoL/L (3.5-5.1); Sodium 134 mmol/L (136-145); Total Protein,Serum 6.6 g/dl (6.3-8.2)
[2025-08-20] MEDS: ASPIRIN EC 81MG TABLET 81 MG PO (09:01)
[2025-08-20] MEDS: METOPROLOL SUCCINATE XL 25MG TABLET 25 MG PO (09:01)
--- NOTE | 2025-08-20 10:28 | IR_ITS ---
APPROVED REPORT Patient Location: Inpatient PROCEDURES Left heart catheterization Left ventriculogram Selective coronary angiogram INDICATION Acute non-ST elevation myocardial infarction Informed consent was obtained prior to the procedure. COMPLICATIONS NONE Estimated Blood Loss: LESS THAN 10 ML TECHNIQUE One percent lidocaine used to anesthetize the right anterior aspect of the wrist. The right radial artery was accessed via the Seldinger technique. A 6 [place] sheath was placed in the right radial artery. 2.5 mg of Verapamil, 800 mcg of nitroglycerin, 1mg Lidocaine and 5000 U Heparin were given through the arterial sheath. The JL3 catheter was also used to perform left heart catheterization, left ventriculogram and selective coronary angiogram. At the end of the procedure the sheath was removed good hemostasis was achieved using Traclet band, patient was transferred to the postop holding area in stable condition. ANGIOGRAPHIC RESULTS The left main artery He has an eccentric 30% stenosis The left anterior descending artery Proximal 10% luminal regularities with mid vessel tandem 40 and 50% stenoses. The vessel was highly tortuous from the midportion distally The circumflex artery Large codominant with proximal and mid vessel 30% stenosis The right coronary artery Codominant with mild 10% luminal regularities and mid vessel 30 to 40% stenosis The VALADEZ ventriculogram reveals Normal 65% The left ventricular end-diastolic pressure 15 mmHg IMPRESSION Moderate mid LAD disease as described above which is best managed medically Normal ejection fraction Elevated LVEDP PLAN 1. Dual antiplatelet therapy for 1 year 2. LDL less than 55 to be achieved with high intensity statin 3. Avoidance of tobacco products 4. Cardiac rehabilitation 5. Risk factor modification 6. Check official echocardiogram to make sure no regional wall motion abnormality Electronically signed by : Babatunde Vincent MD 08/20/2025 14:06:04
[2025-08-20 11:15] LABS: POC Glucose,Bedside 193 gm/dL (70-110)
--- NOTE | 2025-08-20 11:53 | EXP.CARD.CON ---
History of Present Illness History of Present Illness Consult date: 08/20/25 Consult reason: chest pain Chief complaint: chest pain History of present illness: 75-year-old white female with a history of CVA in February of this year evaluated at [facility] at that time. Says this was a 10-day admission and had multiple cook fish eggs working her up for something in her chest details of this are not clear. She has poor mental recall following the stroke. Her family is here with her but cannot provide any additional history. She presented here 2 days ago with worsening and severe chest discomfort with radiation up to her neck associated with shortness of breath. She presented to the emergency room where she had initial troponin was normal but subsequently keo to a peak of 2.0 then began trending down. She was resistant to left heart cath and very anxious about this and wanted her family to arrive prior to proceeding. EKG shows nonspecific ischemic changes in leads III and aVF. Home meds include Eliquis, atorvastatin, bisoprolol, amlodipine. This morning she reports her symptoms have resolved aside from fatigue. She is agreeable at this point to proceed with left heart cath if recommended. [facility] Disclaimer: The information contained in this section may have been updated after the patient was seen, as this information can be updated by other users. Medical History Hyperlipidemia Diabetes mellitus Hypertension Hernia Surgical History H/O: hysterectomy Social History Smoking Status: Never smoker alcohol intake: never current occupational status: other Travel in the last 8 weeks?: None Review of Systems Constitutional Constitutional: Reports fatigue and Reports weakness Eyes Eyes: Denies loss of vision ENT Ears, Nose, Mouth, and Throat: Denies hearing loss *Cardiovascular Cardiovascular: Reports chest pain and Reports dyspnea *Respiratory Respiratory: Denies cough and Reports dyspnea *Gastrointestinal Gastrointestinal: Denies change in stool character, Denies nausea and Denies vomiting *Musculoskeletal Musculoskeletal: Denies muscle weakness Integumentary/Breasts Skin/Breast: Denies changing lesions *Neurologic Neurologic: Reports system reviewed and no additional complaints, except as documented, Denies loss of vision and Reports weakness Endocrine Endocrine: Reports fatigue Exam Data for Last 24 hours Vital signs and Labs for Last 24 Hours: Temp Pulse Resp BP Pulse Ox O2 Del Method 98.2 F 85 20 157/77 H 96 Room Air 08/20/25 08:00 08/20/25 08:00 08/20/25 08:00 08/20/25 08:00 08/20/25 08:00 08/20/25 08:59 Laboratory Results - last 24 hr 08/19/25 16:20: POC Glucose 147 H 08/19/25 20:12: POC Glucose 177 H 08/20/25 06:07: WBC 8.3, RBC 4.38, Hgb 11.9 L, Hct 38.2, MCV 87.2, MCH 27.2, MCHC 31.2 L, RDW 12.9, Plt Count 285, MPV 11.5 H, Neut % (Auto) 65.5, Lymph % (Auto) 23.3, [place] % (Auto) 8.3, Eos % (Auto) 1.9, Baso % (Auto) 0.5, Neut # (Auto) 5.4, Lymph # (Auto) 1.9, [place] # (Auto) 0.7, Eos # (Auto) 0.2, Baso # (Auto) 0.0, Sodium 134 L, Potassium 3.8, Chloride 103, Carbon Dioxide 25, Anion Gap 9.8, BUN 15, Creatinine 0.90, Estimated Creat Clear 44, Estimated GFR 61, Est GFR ( Amer) 73, Glucose 168 H, POC Glucose 166 H, Calcium 9.5, Total Bilirubin 0.6, AST 31 D, ALT 15, Alkaline Phosphatase 53, Total Protein 6.6, Albumin 3.7, Globulin 2.9, Albumin/Globulin Ratio 1.3 08/20/25 10:50: POC Glucose 193 H I & O for Last 24 hours: Intake & Output 08/17/25 08/18/25 08/19/25 08/20/25 23:59 23:59 23:59 23:59 Intake Total 2460 / 2710 1510 / 1710 620 / 620 Output Total 2650 / 3050 3350 / 3350 350 / 350 Balance -190 / -340 -1840 / -1640 270 / 270 Weight 269 lb 266 lb 9.6 oz 262 lb 12.8 oz Constitutional Constitutional: no acute distress and cooperative *Routine HEENT Exam Eye: Present PERRL *Routine Respiratory Exam Respiratory: Present CTA bilaterally; Absent accessory muscle use, wheezes or crackles *Routine Cardiovascular Exam Cardiovascular: Present RRR, Normal S1 and Normal S2; Absent murmur, gallop or rubs *Routine Abdominal Exam Abdominal: Present soft; Absent tenderness *Routine Extremities Exam Extremities: Present pulses intact; Absent cyanosis or edema *Routine Skin Exam Skin: Present intact; Absent erythema or wounds *Routine Neurological Exam Neurological: Present alert and oriented X3 Routine Psychiatric Exam Psychiatric: Present cooperative Meds Home Medications and Allergies Home Medications ?Medication ?Instructions ?Recorded ?Confirmed ?Type amlodipine 5 mg tablet 5 mg PO DAILY 08/18/25 08/18/25 History apixaban 5 mg tablet (Eliquis) 5 mg PO BID 08/18/25 08/18/25 History atorvastatin 40 mg tablet 40 mg PO DAILY 08/18/25 08/18/25 History bisoprolol fumarate 5 mg tablet 2.5 mg PO DAILY 08/18/25 08/18/25 History ergocalciferol (vitamin D2) 1,250 50,000 unit PO WEEKLY 08/18/25 08/18/25 History mcg (50,000 unit) capsule fenofibrate nanocrystallized 145 145 mg PO DAILY 08/18/25 08/18/25 History mg tablet glipizide 10 mg tablet 10 mg PO BIDWMEAL 08/18/25 08/18/25 History metformin 1,000 mg tablet 1,000 mg PO BIDWMEAL 08/18/25 08/18/25 History aspirin 81 mg tablet,delayed 81 mg PO DAILY 30 days #30 tabs 08/20/25 Rx release clopidogrel 75 mg tablet (Plavix) 75 mg PO DAILY #30 tabs 08/20/25 Rx New Prescriptions to Start Prescriptions: Nakul Moyer clopidogrel [Plavix] Nakul Fleming Allergies Allergy/AdvReac Type Severity Reaction Status Date / Time No Known Allergies Allergy Verified 08/18/25 02:54 Assessment and Plan *Assessment and plan (1) Non-ST elevation [place] (NSTEMI): Status: Acute Category: Medical Code(s): I21.4 - Non-ST elevation (NSTEMI) myocardial infarction (2) History of CVA (cerebrovascular accident): Status: Acute Category: Medical Code(s): Z86.73 - Personal history of transient ischemic attack (TIA), and cerebral infarction without residual deficits (3) Type 2 diabetes mellitus: Status: Acute Category: Medical Code(s): E11.9 - Type 2 diabetes mellitus without complications Plan NSTEMI - new dx this admission with rising serial Trop >2 and ischemic changes inferior leads with classic anginal chest pain - ECHO pending - continue ASA, Lovenox, Statin, BB - pt agreeable to [facility] today Hx of CVA - 02/2025, details unclear - gather records from [facility] DM-II - poorly controlled with A1C 8.0 - glucose mangaement per Hospitalist - consider GLP-1 SGLT-2 later HLD - well controlled with LDL 54 here - cont high dose statin in setting of DM Further plans pending [facility] and ECHO results today 2D echo showed normal normal biventricular function and mild valve disease. Left heart cath showed nonobstructive disease best managed medically. Patient possibly had vasospasm. Add Imdur 60 to home regimen, otherwise continue home meds. She is CV stable for discharge. She needs office follow-up with us in 2 weeks.
--- NOTE | 2025-08-20 13:23 | PC.NURSE ---
pt off floor to central lab technician
[2025-08-20] MEDS: MIDAZOLAM HCL 1MG/ML 5ML VIAL 1 MG IV (13:34)
[2025-08-20] MEDS: HEPARIN 1,000 UNITS/500ML NS (CATH LAB) 3000 UNIT IV (13:34)
[2025-08-20] MEDS: NITROGLYCERIN 800MCG/8ML SYR (CATH LAB) 800 MCG IA (13:34)
[2025-08-20] MEDS: LIDOCAINE 1% 10ML MDV 10 ML IJ (13:34)
[2025-08-20] MEDS: FENTANYL 100MCG/2ML VIAL 50 MCG IV (13:34)
[2025-08-20] MEDS: VERAPAMIL 2.5MG/ML 2ML VIAL 2.5 MG IV (13:35)
[2025-08-20] MEDS: 0.9 % SODIUM CHLORIDE 500 ML 25 ML IV (13:35)
[2025-08-20] MEDS: HEPARIN 1,000 UNITS/ML 10ML VIAL (CATH LAB) 5000 UNIT IV (13:35)
--- NOTE | 2025-08-20 14:10 | EXP.DC.SUM ---
General Admission date:: 08/18/25 HPI HPI HPI: This is a 75-year-old female who has a past medical history significant for diabetes, hyperlipidemia, and CVA who presents with a chief complaint of substernal chest pain that radiates to the neck. Due to patient's symptoms, she presented to the emergency room for evaluation. While in the emergency room, CT scan of the abdomen and pelvis revealed no acute intra-abdominal intrapelvic process. Patient had serial troponins performed and the initial was normal and his subsequent was mildly elevated. Her case was discussed with the early morning on-call who recommended giving patient therapeutic dosing of Lovenox and continue to trend patient's troponin. As result of these recommendations, patient is being admitted for further management. During my evaluation of the patient, patient states her symptoms started approximately 5 hours prior to admission to the hospital. She reports her symptoms are consistent with burning, without any diaphoresis, without any shortness of air, and is still ongoing. She did get some nitro sublingual and she states her symptoms did improve however she can still feeling aching in her chest. She recently was evaluated by her primary [place] superintendent of schools who recommended 6 months a 2D echo in 6 months. She has had previous stroke and she was told that something broke off. Patient is currently prescribed Eliquis send she did take her Eliquis last night. She is currently denying any lightheadedness, PND, orthopnea, shortness of breath, dyspnea, fever, chills, rigors, nausea, vomiting, diaphoresis, or diarrhea. Additional pertinent values obtained include a white blood cell count of 11.5, BUN of 20, blood glucose 156, and troponin 0.05. EKG revealed a sinus rhythm, T wave inversion in the inferior, QTc of 437, first-degree AV block, and normal axis-negative STEMI. Hospital Course Hospital Course Hospital Course: Belinda Lara is a 75-year-old female who presented with left-sided chest pain and was admitted for NSTEMI. #Chest pain #NSTEMI #Small pericardial effusion ? Patient presented with left-sided chest pain, troponin peaked at 2.08 and down trended to 1.49. Patient is a non-smoker. ? Patient did have intermittent chest pains 1st and 2nd day of admission, refused Nitropaste. ? Patient was initially very reluctant for [facility], but amenable after send spoke to her. She will need preoperative risk assessment by cardiology for upcoming total knee replacement. ? Cardiology consulted, s/p [facility] on 08/20/[address] moderate LAD disease. Dr. Vincent recommended DAPT for 1 year, and continuing home Eliquis until follow-up with cardiology. ? ECHO on 08/20/2025 revealed normal biventricular systolic function, and a small posterior pericardial effusion without signs of tamponade. ? A1c 8.0%, LDL 54, TSH normal. ? Discharged with aspirin 81 mg, Plavix 75 mg, continue atorvastatin, bisoprolol. #Type 2 diabetes ? Hemoglobin A1c 8.0%, not at goal per patient. ? Continue home glipizide, metformin. Will need further titrations with PCP. #History of CVA ? Continue home Eliquis. Exam Data for Last 24 hours Vital signs and Labs for Last 24 Hours: Temp Pulse Resp BP Pulse Ox O2 Del Method 98.7 F 76 14 140/83 95 Room Air 08/20/25 12:00 08/20/25 12:00 08/20/25 12:00 08/20/25 12:00 08/20/25 12:00 08/20/25 13:00 Laboratory Results - last 24 hr 08/19/25 16:20: POC Glucose 147 H 08/19/25 20:12: POC Glucose 177 H 08/20/25 06:07: WBC 8.3, RBC 4.38, Hgb 11.9 L, Hct 38.2, MCV 87.2, MCH 27.2, MCHC 31.2 L, RDW 12.9, Plt Count 285, MPV 11.5 H, Neut % (Auto) 65.5, Lymph % (Auto) 23.3, [place] % (Auto) 8.3, Eos % (Auto) 1.9, Baso % (Auto) 0.5, Neut # (Auto) 5.4, Lymph # (Auto) 1.9, [place] # (Auto) 0.7, Eos # (Auto) 0.2, Baso # (Auto) 0.0, Sodium 134 L, Potassium 3.8, Chloride 103, Carbon Dioxide 25, Anion Gap 9.8, BUN 15, Creatinine 0.90, Estimated Creat Clear 44, Estimated GFR 61, Est GFR ( Amer) 73, Glucose 168 H, POC Glucose 166 H, Calcium 9.5, Total Bilirubin 0.6, AST 31 D, ALT 15, Alkaline Phosphatase 53, Total Protein 6.6, Albumin 3.7, Globulin 2.9, Albumin/Globulin Ratio 1.3 08/20/25 10:50: POC Glucose 193 H Temp Pulse Resp BP Pulse Ox O2 Del Method 98.2 F 85 20 157/77 H 96 Room Air 08/20/25 08:00 08/20/25 08:00 08/20/25 08:00 08/20/25 08:00 08/20/25 08:00 08/20/25 08:59 Laboratory Results - last 24 hr 08/19/25 16:20: POC Glucose 147 H 08/19/25 20:12: POC Glucose 177 H 08/20/25 06:07: WBC 8.3, RBC 4.38, Hgb 11.9 L, Hct 38.2, MCV 87.2, MCH 27.2, MCHC 31.2 L, RDW 12.9, Plt Count 285, MPV 11.5 H, Neut % (Auto) 65.5, Lymph % (Auto) 23.3, [place] % (Auto) 8.3, Eos % (Auto) 1.9, Baso % (Auto) 0.5, Neut # (Auto) 5.4, Lymph # (Auto) 1.9, [place] # (Auto) 0.7, Eos # (Auto) 0.2, Baso # (Auto) 0.0, Sodium 134 L, Potassium 3.8, Chloride 103, Carbon Dioxide 25, Anion Gap 9.8, BUN 15, Creatinine 0.90, Estimated Creat Clear 44, Estimated GFR 61, Est GFR ( Amer) 73, Glucose 168 H, POC Glucose 166 H, Calcium 9.5, Total Bilirubin 0.6, AST 31 D, ALT 15, Alkaline Phosphatase 53, Total Protein 6.6, Albumin 3.7, Globulin 2.9, Albumin/Globulin Ratio 1.3 08/20/25 10:50: POC Glucose 193 H I & O for Last 24 hours: Intake & Output 08/17/25 08/18/25 08/19/25 08/20/25 23:59 23:59 23:59 23:59 Intake Total 2460 / 2710 1510 / 1710 1120 / 1120 Output Total 2650 / 3050 3350 / 3350 350 / 350 Balance -190 / -340 -1840 / -1640 770 / 770 Weight 122.016 kg 120.928 kg 119.204 kg Intake & Output 08/17/25 08/18/25 08/19/25 08/20/25 23:59 23:59 23:59 23:59 Intake Total 2460 / 2710 1510 / 1710 620 / 620 Output Total 2650 / 3050 3350 / 3350 350 / 350 Balance -190 / -340 -1840 / -1640 270 / 270 Weight 269 lb 266 lb 9.6 oz 262 lb 12.8 oz Constitutional Constitutional: no acute distress and cooperative *Routine HEENT Exam Eye: Present PERRL *Routine Respiratory Exam Respiratory: Present CTA bilaterally; Absent accessory muscle use, wheezes or crackles *Routine Cardiovascular Exam Cardiovascular: Present RRR, Normal S1 and Normal S2; Absent murmur, gallop or rubs *Routine Abdominal Exam Abdominal: Present soft; Absent tenderness *Routine Extremities Exam Extremities: Present pulses intact; Absent cyanosis or edema *Routine Skin Exam Skin: Present intact; Absent erythema or wounds *Routine Neurological Exam Neurological: Present alert and oriented X3 Routine Psychiatric Exam Psychiatric: Present cooperative Results Data Completed and Pending Labs on day of discharge: Labs from last 24 hours 08/20/25 08/20/25 08/19/25 10:50 06:07 20:12 WBC 8.3 RBC 4.38 Hgb 11.9 L Hct 38.2 MCV 87.2 MCH 27.2 MCHC 31.2 L RDW 12.9 Plt Count 285 MPV 11.5 H Neut % (Auto) 65.5 Lymph % (Auto) 23.3 [place] % (Auto) 8.3 Eos % (Auto) 1.9 Baso % (Auto) 0.5 Neut # (Auto) 5.4 Lymph # (Auto) 1.9 [place] # (Auto) 0.7 Eos # (Auto) 0.2 Baso # (Auto) 0.0 Sodium 134 L Potassium 3.8 Chloride 103 Carbon Dioxide 25 Anion Gap 9.8 BUN 15 Creatinine 0.90 Estimated Creat Clear 44 Estimated GFR 61 Est GFR ( Amer) 73 Glucose 168 H POC Glucose 193 H 166 H 177 H Calcium 9.5 Total Bilirubin 0.6 AST 31 D ALT 15 Alkaline Phosphatase 53 Total Protein 6.6 Albumin 3.7 Globulin 2.9 Albumin/Globulin Ratio 1.3 08/19/25 16:20 WBC RBC Hgb Hct MCV MCH MCHC RDW Plt Count MPV Neut % (Auto) Lymph % (Auto) [place] % (Auto) Eos % (Auto) Baso % (Auto) Neut # (Auto) Lymph # (Auto) [place] # (Auto) Eos # (Auto) Baso # (Auto) Sodium Potassium Chloride Carbon Dioxide Anion Gap BUN Creatinine Estimated Creat Clear Estimated GFR Est GFR ( Amer) Glucose POC Glucose 147 H Calcium Total Bilirubin AST ALT Alkaline Phosphatase Total Protein Albumin Globulin Albumin/Globulin Ratio DS: Diagnosis Discharge Diagnosis (1) Non-ST elevation NM (NSTEMI): Status: Acute Code(s): I21.4 - Non-ST elevation (NSTEMI) myocardial infarction (2) History of CVA (cerebrovascular accident): Status: Acute Code(s): Z86.73 - Personal history of transient ischemic attack (TIA), and cerebral infarction without residual deficits (3) Type 2 diabetes mellitus: Status: Acute Code(s): E11.9 - Type 2 diabetes mellitus without complications Meds Home Medications and Allergies Home Medications ?Medication ?Instructions ?Recorded ?Confirmed ?Type amlodipine 5 mg tablet 5 mg PO DAILY 08/18/25 08/18/25 History apixaban 5 mg tablet (Eliquis) 5 mg PO BID 08/18/25 08/18/25 History atorvastatin 40 mg tablet 40 mg PO DAILY 08/18/25 08/18/25 History bisoprolol fumarate 5 mg tablet 2.5 mg PO DAILY 08/18/25 08/18/25 History ergocalciferol (vitamin D2) 1,250 50,000 unit PO WEEKLY 08/18/25 08/18/25 History mcg (50,000 unit) capsule fenofibrate nanocrystallized 145 145 mg PO DAILY 08/18/25 08/18/25 History mg tablet glipizide 10 mg tablet 10 mg PO BIDWMEAL 08/18/25 08/18/25 History metformin 1,000 mg tablet 1,000 mg PO BIDWMEAL 08/18/25 08/18/25 History aspirin 81 mg tablet,delayed 81 mg PO DAILY 30 days #30 tabs 08/20/25 Rx release clopidogrel 75 mg tablet (Plavix) 75 mg PO DAILY #30 tabs 08/20/25 Rx New Prescriptions to Start Prescriptions: aspirin Nakul Fleming clopidogrel [Plavix] Nakul Fleming Allergies Allergy/AdvReac Type Severity Reaction Status Date / Time No Known Allergies Allergy Verified 08/18/25 02:54 Discharge Plan Disposition Patient Disposition: Home, Self-Care Condition: Fair Follow up Plan Follow up with: Abrahan Carson PA [Physician Mine Inspector, Cardiology] - 09/06/25 11:15 am Abrahan Nelson [Referring, Medical] - 08/27/25 11:00 am Prescriptions/Medication Reconciliation: New aspirin 81 mg Tablet,Delayed Release (Dr/Ec) 81 mg PO DAILY 30 Days Qty: 30 0RF clopidogrel [Plavix] 75 mg tablet 75 mg PO DAILY Qty: 30 0RF Continued atorvastatin 40 mg tablet 40 mg PO DAILY glipizide 10 mg Tablet 10 mg PO BIDWMEAL amlodipine 5 mg Tablet 5 mg PO DAILY bisoprolol fumarate 5 mg Tablet 2.5 mg PO DAILY metformin 1,000 mg tablet 1,000 mg PO BIDWMEAL ergocalciferol (vitamin D2) 1,250 mcg (50,000 unit) capsule 50,000 unit PO WEEKLY Eliquis 5 mg tablet 5 mg PO BID fenofibrate nanocrystallized 145 mg Tablet 145 mg PO DAILY Problem Reconciliation Problems Reviewed?: Yes Patient Discharge Instructions Patient Instructions: DI for Heart Attack, DI for Cardiac Catheterization, DI for Surgical Site Infection, DI for Chest Pain Print Language: [place]an Providers Primary Care Provider: Provider,Referral Admit Provider: Nakul Fleming Attending Provider: Nakul Fleming
[2025-08-20] MEDS: IOPAMIDOL-370 (76%);100ML BOTTLE 60 ML IV (14:32)
[2025-08-20] MEDS: ISOSORBIDE MONO 30MG TAB.ER.24H 60 MG PO (16:21)
--- NOTE | 2025-08-20 17:35 | CA_ITS ---
APPROVED REPORT EXAM: Comprehensive 2D, Doppler, and color-flow Echocardiogram Head Strength And Conditioning Coach: Hailey Jarvis CRT Ht: 5 ft 6 in Wt: 269lbs BSA: 2.27 BP: 121/66 mmHg Indications: Chest Pain, CVA/TIA, Non STEMI, Diabetes, Hyperlipidemia, Hypertension/HDD 2D Dimensions LA Volume 26.70 mL LA Volume Index 11.50 mL/m2 (M/F) 16-34 M-Mode Dimensions RVDd 2.88 cm (0.9-2.6) LA Diam 4.35 cm (1.9-4.0) LVDd 4.49 cm (3.5-5.7) LVDs 2.80 cm (3.5-5.7) IVSd 1.57 cm (0.6-1.1) PWd 1.23 cm (0.6-1.1) EF (Teich) 67.80% FS 37.60% EDV (Teich) 92.00 mL TAPSE 2.17 (<1.7) ESV (Teich) 29.60 mL LV Diastology E Decel Time 150 (160-240 msec) E/A Ratio 0.56 MED A' 7.20 cm/s LAT A' 10.10 cm/s Aortic Valve AO Peak GR. 8.00 mmHg Mitral Valve MV E Max Calixto. 79.0 (40-130 cm/s) MV A Velocity 141.0 (40-130 cm/s) E/A Ratio 0.56 MV PHT 44.0 ms Pulmonary Valve PV Peak Velocity 102.0 (50-150 cm/s) Tricuspid Valve TR P. Velocity 156.00 cm/s RAP Estimate 10.00 mmHg RVSP 19.80 mmHg Left Ventricle The left ventricle is normal size. Left ventricular systolic function is normal. The left ventricular ejection fraction is within the normal range. There is increased left ventricular wall thickness. There is normal LV segmental wall motion. Transmitral Doppler flow pattern suggests impaired LV relaxation. LVEF is 65% Right Ventricle The right ventricle is mildly dilated. The right ventricular systolic function is normal. Atria The left atrium is moderately dilated. The right atrium is moderately dilated. There is no color Doppler evidence of interatrial shunt. Aortic Valve The aortic valve is mildly thickened. There is no hemodynamically significant aortic valvular stenosis. Trace aortic regurgitation is present. Mitral Valve Moderate mitral annular calcification is present. The mitral valve is mildly thickened. No evidence of mitral valve stenosis. Mild mitral regurgitation is present. Tricuspid Valve The tricuspid valve leaflets are thin and pliable. Mild tricuspid regurgitation. RVSP is 20-25 mmHg. Pulmonic Valve The pulmonary valve is grossly normal in structure. Trace pulmonic valve regurgitation is present. Great Vessels The aortic root is normal in size. IVC is normal in size and collapses >50% with inspiration. Pericardium There is a small-sized, posterior pericardial effusion. The largest pocket measures 0.4 cm in diastole. No echo indications of tamponade. Other Information Study Quality: Technically Difficult Conclusion Normal biventricular systolic function. Mild RV dilation. Biatrial dilation. Mild MR, mild TR. Small-sized, posterior pericardial effusion. The largest pocket measures 0.4 cm in diastole. No echo indications of tamponade. Electronically signed by : Tereza Townsend MD 08/20/2025 12:26:13
[2025-08-20 18:26] LABS: POC Glucose,Bedside 169 gm/dL (70-110)
--- NOTE | 2025-08-21 10:31 | SW/DCPLANNER ---
Spoke with patient's granddaughter on the phone. Patient's granddaughter stated that she is doing good. Patient's granddaughter stated that she was able to get her new medicine picked up from the pharmacy. Patient's granddaughter stated that she has no concerns or questions at this time. Kaelyn OLMSTEAD Baker Second
[2025-08-21 15:21] LABS: POC Glucose,Bedside 155 gm/dL (70-110)
== END 2025-08-20 18:00 | disposition home or self-care (01) ==
LOC: ER 04:14 → 2ND 06:25
PROVIDERS: Internal Medicine; Nurse Practitioner Family; Admitting Provider Student in an Organized Health Care Education/Training Program; Emergency Provider Emergency Medicine; Visit Provider Student in an Organized Health Care Education/Training Program
PROC: 4A023N7 Measurement of Cardiac Sampling and Pressure, Left Heart, Percutaneous Approach (ICD-10-PCS; CPT 93452; principal; 2025-08-20 15:00)
DX: I21.4 Non-ST elevation (NSTEMI) myocardial infarction (principal); Z86.73 Personal history of transient ischemic attack (TIA), and cerebral infarction without residual deficits; Z79.01 Long term (current) use of anticoagulants; I44.0 Atrioventricular block, first degree; E78.5 Hyperlipidemia, unspecified; I10 Essential (primary) hypertension; I25.10 Atherosclerotic heart disease of native coronary artery without angina pectoris; E11.65 Type 2 diabetes mellitus with hyperglycemia; F41.9 Anxiety disorder, unspecified; Z63.4 Disappearance and death of family member; Z79.899 Other long term (current) drug therapy; Z79.4 Long term (current) use of insulin; Z79.84 Long term (current) use of oral hypoglycemic drugs
CPT/HCPCS: 36415; 71045; 74177; 80048; 80053; 80061; 81001; 82607; 82728; 82746; 82962; 83036; 83540; 83550; 83605; 83690; 84443; 84484; 85025; 85610; 93005; 93306; 93458; 96361; 96372; 96374; 99152; 99285; C1769; C1887; G0378; J1200; J1644; J1650; J2003; J2250; J3010; J7040; J7120; Q9967